=== PATIENT | male | born 1965 | race Caucasian/White ===

== ENCOUNTER 2017-08-06 13:43 | Emergency (ER) | payer OTHER ==
[2017-08-06] MEDS: GI COCKTAIL 50ML BTL(HYOSCYAMINE/MAALOX/LIDOCAINE VISCOUS)(1:3:1) PO (14:30)
[2017-08-06 14:50] LABS: BASO # 0.1 10^3/uL (0.0-0.2); BASO % 0.7 % (0.0-1.0); EOS # 0.1 10^3/uL (0.0-0.50); EOS % 1.4 % (0.0-3.0); HEMATOCRIT 39.1 % (42.0-52.0); HEMOGLOBIN 13.8 g/dl (14.0-18.0); IMMATURE GRANULOCYTE % 0.3 % (0-0); LYMPH # 1.4 10^3/uL (1.5-4.5); LYMPH % 19.6 % (24.0-44.0); MEAN CORPUSCULAR HGB CONC 35.3 g/dl (32.0-36.5); MEAN CORPUSCULAR VOLUME 87.9 fl (80.0-96.0); MONO # 0.4 10^3/uL (0.0-0.8); MONO % 5.9 % (0.0-5.0); NEUTROPHILS % 72.1 % (36.0-66.0); PLATELET COUNT, AUTOMATED 247 10^3/uL (150-450); RED BLOOD COUNT 4.45 10^6/uL (4.30-6.10); RED CELL DISTRIBUTION WIDTH 12.1 % (11.5-14.5); WHITE BLOOD COUNT 6.9 10^3/uL (4.0-10.0)
[2017-08-06 15:03] LABS: D-DIMER QUANT 384.8 ng/ml (<500)
[2017-08-06 15:18] LABS: ALBUMIN 3.9 GM/DL (3.2-5.2); ALBUMIN/GLOBULIN RATIO 1.44 (1.00-1.93); ALKALINE PHOSPHATASE 91 U/L (45-117); ALT/SGPT 20 U/L (12-78); ANION GAP 4 MEQ/L (8-16); AST/SGOT 13 U/L (7-37); BILIRUBIN,DIRECT 0.2 MG/DL (0.0-0.2); BLOOD UREA NITROGEN 21 MG/DL (7-18); CARBON DIOXIDE LEVEL 30 MEQ/L (21-32); CHLORIDE LEVEL 109 MEQ/L (98-107); CPK CREATINE PHOSPHOKINASE 101 U/L (39-308); CREATININE FOR GFR 0.84 MG/DL (0.70-1.30); GLOMERULAR FILTRATION RATE > 60.0 (>56); GLUCOSE, FASTING 90 MG/DL (70-105); LIPASE 211 U/L (73-393); SODIUM LEVEL 143 MEQ/L (136-145); TOTAL PROTEIN 6.6 GM/DL (6.4-8.2); TROPONIN I < 0.02 NG/ML (< 0.10)
[2017-08-06 15:24] LABS: MB/CK RELATIVE INDEX 0.99 (< OR =4)
[2017-08-06] MEDS ORDERED: ISOVUE-370 76% 100ML VIAL (Q9967) As Ordered (15:45)
[2017-08-06 16:17] LABS: MAGNESIUM LEVEL 2.3 MG/DL (1.8-2.4)
[2017-08-06 18:01] LABS: CPK CREATINE PHOSPHOKINASE 92 U/L (39-308); TROPONIN I < 0.02 NG/ML (< 0.10)
[2017-08-06 18:02] LABS: CK-MB VALUE MASS 1.1 NG/ML (0.0-3.6); MB/CK RELATIVE INDEX 1.19 (< OR =4)
== END 2017-08-06 18:49 | disposition home or self-care (01) ==
LOC: M ED 13:43
DX: R07.89 Other chest pain (principal); R00.1 Bradycardia, unspecified; K21.9 Gastro-esophageal reflux disease without esophagitis; Z87.891 Personal history of nicotine dependence; Z79.899 Other long term (current) drug therapy; Z88.5 Allergy status to narcotic agent
CPT/HCPCS: Q9967

== ENCOUNTER 2017-09-27 09:22 | Emergency (ER) | payer OTHER ==
[2017-09-27] MEDS: NS 1,000 ML IV (10:10)
[2017-09-27 10:18] LABS: BEDSIDE GLUCOSE 92 MG/DL (70-105)
[2017-09-27 10:22] LABS: EOS # 0.1 10^3/uL (0.0-0.50); EOS % 2.9 % (0.0-3.0); HEMATOCRIT 44.8 % (42.0-52.0); IMMATURE GRANULOCYTE % 0.3 % (0-3.0); LYMPH # 1.2 10^3/uL (1.5-4.5); LYMPH % 31.7 % (24.0-44.0); MEAN CORPUSCULAR HEMOGLOBIN 31.5 pg (27.0-33.0); MEAN CORPUSCULAR HGB CONC 35.7 g/dl (32.0-36.5); MEAN CORPUSCULAR VOLUME 88.2 fl (80.0-96.0); MONO # 0.3 10^3/uL (0.0-0.8); MONO % 8.8 % (0.0-5.0); NEUTROPHILS # 2.1 10^3/uL (1.8-7.7); NEUTROPHILS % 55.3 % (36.0-66.0); PLATELET COUNT, AUTOMATED 223 10^3/uL (150-450); RED BLOOD COUNT 5.08 10^6/uL (4.30-6.10); RED CELL DISTRIBUTION WIDTH 12.8 % (11.5-14.5); WHITE BLOOD COUNT 3.9 10^3/uL (4.0-10.0)
[2017-09-27 10:45] LABS: ALBUMIN 4.3 GM/DL (3.2-5.2); ALBUMIN/GLOBULIN RATIO 1.16 (1.00-1.93); ALKALINE PHOSPHATASE 120 U/L (45-117); ALT/SGPT 20 U/L (12-78); AMYLASE 54 U/L (25-115); ANION GAP 7 MEQ/L (8-16); AST/SGOT 12 U/L (7-37); BILIRUBIN,DIRECT 0.1 MG/DL (0.0-0.2); BILIRUBIN,TOTAL 0.9 MG/DL (0.2-1.0); BLOOD UREA NITROGEN 12 MG/DL (7-18); CALCIUM LEVEL 9.1 MG/DL (8.5-10.1); CARBON DIOXIDE LEVEL 30 MEQ/L (21-32); CHLORIDE LEVEL 107 MEQ/L (98-107); GLOMERULAR FILTRATION RATE > 60.0 (>56); GLUCOSE, FASTING 90 MG/DL (70-100); LIPASE 155 U/L (73-393); POTASSIUM SERUM 3.9 MEQ/L (3.5-5.1); SODIUM LEVEL 144 MEQ/L (136-145)
[2017-09-27 11:29] LABS: TROPONIN I < 0.02 NG/ML (< 0.10)
[2017-09-27] MEDS: GASTROGRAFIN SOLUTION 30ML PO ×2 (11:30→12:00)
[2017-09-27] MEDS ORDERED: ISOVUE-370 76% 100ML VIAL (Q9967) As Ordered (12:39)
[2017-09-27 14:22] LABS: ERYTHROCYTE SEDIMENTATION RATE 4 mm/hr (0-20)
[2017-09-30 00:07] LABS: ANCA-ATYPICAL <1:20 titer (Neg:<1:20); ANTI-SACCHAROMYCES CEREV. IgA <20.0 Units (0.0-24.9); ANTI-SACCHAROMYCES CEREV. IgG 32.5 Units (0.0-24.9); CYTOPLASMIC NEUTROP AB ANCA-C <1:20 titer (Neg:<1:20); PERINUCLEAR AB ANCA-P <1:20 titer (Neg:<1:20)
== END 2017-09-27 14:36 | disposition home or self-care (01) ==
LOC: M ED 09:22
DX: K52.9 Noninfective gastroenteritis and colitis, unspecified (principal); R94.31 Abnormal electrocardiogram [ECG] [EKG]; Z88.5 Allergy status to narcotic agent; Z98.890 Other specified postprocedural states
CPT/HCPCS: Q9963

== ENCOUNTER → 2017-12-31 | Outpatient (REF) | payer OTHER ==
[2018-01-08 00:09] LABS: CALPROTECTIN STOOL <16 ug/g (0-120); FATS NEUTRAL Normal (.); FATS TOTAL Normal (.); O+P EXAM Final report (.); PANCREATIC ELASTASE STOOL >500 (>200)
== END ==
LOC: M LAB REF 12:13
DX: R10.84 Generalized abdominal pain (principal); K21.9 Gastro-esophageal reflux disease without esophagitis; R15.2 Fecal urgency; R14.0 Abdominal distension (gaseous); R19.7 Diarrhea, unspecified

== ENCOUNTER → 2018-04-18 | Outpatient (REF) | payer OTHER ==
[2018-04-18 13:02] LABS: BASO % 0.5 % (0.0-1.0); EOS # 0.1 10^3/uL (0.0-0.50); EOS % 2.3 % (0.0-3.0); HEMATOCRIT 39.1 % (42.0-52.0); HEMOGLOBIN 13.6 g/dl (13.5-17.5); IMMATURE GRANULOCYTE % 0.3 % (0-3.0); LYMPH % 16.6 % (24.0-44.0); MEAN CORPUSCULAR HEMOGLOBIN 31.2 pg (27.0-33.0); MEAN CORPUSCULAR HGB CONC 34.8 g/dl (32.0-36.5); MEAN CORPUSCULAR VOLUME 89.7 fl (80.0-96.0); MONO # 0.5 10^3/uL (0.0-0.8); MONO % 7.6 % (0.0-5.0); NEUTROPHILS # 4.5 10^3/uL (1.8-7.7); NEUTROPHILS % 72.7 % (36.0-66.0); PLATELET COUNT, AUTOMATED 186 10^3/uL (150-450); RED BLOOD COUNT 4.36 10^6/uL (4.30-6.10); RED CELL DISTRIBUTION WIDTH 12.6 % (11.5-14.5); WHITE BLOOD COUNT 6.2 10^3/uL (4.0-10.0)
[2018-04-18 13:26] LABS: ERYTHROCYTE SEDIMENTATION RATE 6 mm/hr (0-20)
[2018-04-18 14:16] LABS: ALBUMIN 3.7 GM/DL (3.2-5.2); ALBUMIN/GLOBULIN RATIO 1.23 (1.00-1.93); ALKALINE PHOSPHATASE 100 U/L (45-117); ALT/SGPT 21 U/L (12-78); ANION GAP 10 MEQ/L (8-16); AST/SGOT 14 U/L (7-37); BILIRUBIN,TOTAL 1.2 MG/DL (0.2-1.0); BLOOD UREA NITROGEN 17 MG/DL (7-18); C REACTIVE PROTEIN QUANTITATIV < 0.30 MG/DL (0.00-0.30); CALCIUM LEVEL 8.2 MG/DL (8.5-10.1); CARBON DIOXIDE LEVEL 27 MEQ/L (21-32); CHLORIDE LEVEL 108 MEQ/L (98-107); CREATININE FOR GFR 0.81 MG/DL (0.70-1.30); GLOMERULAR FILTRATION RATE > 60.0 (>56); GLUCOSE, FASTING 84 MG/DL (70-100); POTASSIUM SERUM 4.4 MEQ/L (3.5-5.1); RHEUMATOID FACTOR QUANT < 10.0 IU/ML (<15.0); SODIUM LEVEL 145 MEQ/L (136-145); TOTAL PROTEIN 6.7 GM/DL (6.4-8.2)
[2018-04-23 00:09] LABS: ANTI DOUBLE STRAND-DNA AB <1 IU/mL (0-9); ANTINUCLEAR ANTIBODIES DIRECT Positive (Negative); HLA-B27 Negative (.); Lyme Disease IgG/IgM Antibodie <0.91 ISR (0.00-0.90); Lyme Disease IgM Ab Quantitati <0.80 index (0.00-0.79); RNP ANTIBODIES 1.7 AI (0.0-0.9); SJOGREN'S ANTI SS-A <0.2 AI (0.0-0.9); SJOGREN'S ANTI SS-B <0.2 AI (0.0-0.9); SMITH ANTIBODIES 0.2 AI (0.0-0.9)
== END ==
LOC: M LABDRAW1 09:54
DX: M77.12 Lateral epicondylitis, left elbow (principal)

== ENCOUNTER 2018-06-26 08:00 | Emergency (ER) | payer OTHER ==
[2018-06-26] MEDS: METOPROLOL TART 50 MG TAB PO (08:35)
[2018-06-26] MEDS: METOPROLOL 5 MG/5 ML VIAL IV ×7 (08:35→09:46)
[2018-06-26 08:37] LABS: BASO # 0.1 10^3/uL (0.0-0.2); BASO % 0.9 % (0.0-1.0); EOS # 0.2 10^3/uL (0.0-0.50); EOS % 4.2 % (0.0-3.0); HEMATOCRIT 45.4 % (42.0-52.0); HEMOGLOBIN 15.7 g/dl (13.5-17.5); IMMATURE GRANULOCYTE % 0.4 % (0-3.0); LYMPH # 1.7 10^3/uL (1.5-4.5); MEAN CORPUSCULAR HEMOGLOBIN 31.3 pg (27.0-33.0); MEAN CORPUSCULAR HGB CONC 34.6 g/dl (32.0-36.5); MEAN CORPUSCULAR VOLUME 90.6 fl (80.0-96.0); MONO # 0.5 10^3/uL (0.0-0.8); MONO % 9.7 % (0.0-5.0); NEUTROPHILS # 2.7 10^3/uL (1.8-7.7); NEUTROPHILS % 51.8 % (36.0-66.0); PLATELET COUNT, AUTOMATED 242 10^3/uL (150-450); RED BLOOD COUNT 5.01 10^6/uL (4.30-6.10); RED CELL DISTRIBUTION WIDTH 12.9 % (11.5-14.5); WHITE BLOOD COUNT 5.3 10^3/uL (4.0-10.0)
[2018-06-26 08:41] LABS: INR 0.91; PROTHROMBIN TIME 12.3 SECONDS (12.1-14.4)
[2018-06-26 08:42] LABS: PARTIAL THROMBOPLASTIN TIME 27.4 SECONDS (25.4-37.6)
[2018-06-26 08:47] LABS: ALBUMIN/GLOBULIN RATIO 1.11 (1.00-1.93); ALKALINE PHOSPHATASE 129 U/L (45-117); ALT/SGPT 26 U/L (12-78); ANION GAP 8 MEQ/L (8-16); AST/SGOT 20 U/L (7-37); BILIRUBIN,DIRECT 0.2 MG/DL (0.0-0.2); BILIRUBIN,TOTAL 0.8 MG/DL (0.2-1.0); BLOOD UREA NITROGEN 17 MG/DL (7-18); CALCIUM LEVEL 8.9 MG/DL (8.5-10.1); CARBON DIOXIDE LEVEL 28 MEQ/L (21-32); CHLORIDE LEVEL 106 MEQ/L (98-107); CPK CREATINE PHOSPHOKINASE 110 U/L (39-308); CREATININE FOR GFR 0.97 MG/DL (0.70-1.30); FREE T4 0.87 NG/DL (0.76-1.46); GLOMERULAR FILTRATION RATE > 60.0 (>56); GLUCOSE, FASTING 116 MG/DL (70-100); MAGNESIUM LEVEL 2.1 MG/DL (1.8-2.4); MB/CK RELATIVE INDEX 0.91 (< OR =4); POTASSIUM SERUM 3.6 MEQ/L (3.5-5.1); SODIUM LEVEL 142 MEQ/L (136-145); TOTAL PROTEIN 7.6 GM/DL (6.4-8.2); TROPONIN I < 0.02 NG/ML (< 0.10)
[2018-06-26] MEDS: AMIODARONE HCL 150 MG in APPROPRIATE DILUENT 1 EA IV ×2 (10:08→11:51)
[2018-06-26] MEDS: METOPROLOL TART 25 MG TABLET PO (13:23)
[2018-06-26 14:13] LABS: CK-MB VALUE MASS < 1.0 NG/ML (<3.6); CPK CREATINE PHOSPHOKINASE 97 U/L (39-308); MB/CK RELATIVE INDEX 1.03 (< OR =4); TROPONIN I < 0.02 NG/ML (< 0.10)
== END 2018-06-26 15:56 | disposition home or self-care (01) ==
LOC: M ED 08:00
DX: I48.91 Unspecified atrial fibrillation (principal); F10.10 Alcohol abuse, uncomplicated
CPT/HCPCS: 71045

== ENCOUNTER → 2018-07-04 | Outpatient (REF) | payer OTHER ==
[2018-07-04 17:33] LABS: BASO # 0.1 10^3/uL (0.0-0.2); BASO % 0.8 % (0.0-1.0); EOS # 0.2 10^3/uL (0.0-0.50); HEMATOCRIT 41.1 % (42.0-52.0); HEMOGLOBIN 14.1 g/dl (13.5-17.5); IMMATURE GRANULOCYTE % 0.2 % (0-3.0); LYMPH # 1.8 10^3/uL (1.5-4.5); LYMPH % 27.8 % (24.0-44.0); MEAN CORPUSCULAR HEMOGLOBIN 31.3 pg (27.0-33.0); MEAN CORPUSCULAR HGB CONC 34.3 g/dl (32.0-36.5); MEAN CORPUSCULAR VOLUME 91.1 fl (80.0-96.0); MONO # 0.5 10^3/uL (0.0-0.8); MONO % 7.3 % (0.0-5.0); NEUTROPHILS # 3.9 10^3/uL (1.8-7.7); NEUTROPHILS % 60.9 % (36.0-66.0); PLATELET COUNT, AUTOMATED 256 10^3/uL (150-450); RED BLOOD COUNT 4.51 10^6/uL (4.30-6.10); RED CELL DISTRIBUTION WIDTH 12.7 % (11.5-14.5); WHITE BLOOD COUNT 6.3 10^3/uL (4.0-10.0)
[2018-07-04 17:47] LABS: ALBUMIN 3.9 GM/DL (3.2-5.2); ALBUMIN/GLOBULIN RATIO 1.34 (1.00-1.93); ALKALINE PHOSPHATASE 103 U/L (45-117); ALT/SGPT 18 U/L (12-78); ANION GAP 7 MEQ/L (8-16); AST/SGOT 14 U/L (7-37); BILIRUBIN,TOTAL 0.6 MG/DL (0.2-1.0); BLOOD UREA NITROGEN 19 MG/DL (7-18); CALCIUM LEVEL 8.4 MG/DL (8.5-10.1); CARBON DIOXIDE LEVEL 29 MEQ/L (21-32); CHLORIDE LEVEL 108 MEQ/L (98-107); CREATININE FOR GFR 0.93 MG/DL (0.70-1.30); GLOMERULAR FILTRATION RATE > 60.0 (>56); GLUCOSE, FASTING 87 MG/DL (70-100); POTASSIUM SERUM 3.9 MEQ/L (3.5-5.1); SODIUM LEVEL 144 MEQ/L (136-145); TOTAL PROTEIN 6.8 GM/DL (6.4-8.2)
[2018-07-07 00:08] LABS: ANA (HEP2) Negative (.)
== END ==
LOC: M LABDRAW1 17:03
DX: R76.9 Abnormal immunological finding in serum, unspecified (principal); R00.2 Palpitations; R53.83 Other fatigue; R50.9 Fever, unspecified

== ENCOUNTER → 2018-07-13 | Outpatient (REF) | payer OTHER ==
[2018-07-13 20:13] LABS: ANION GAP 7 MEQ/L (8-16); BLOOD UREA NITROGEN 15 MG/DL (7-18); CALCIUM LEVEL 8.6 MG/DL (8.5-10.1); CARBON DIOXIDE LEVEL 29 MEQ/L (21-32); CHLORIDE LEVEL 107 MEQ/L (98-107); CREATININE FOR GFR 0.98 MG/DL (0.70-1.30); GLOMERULAR FILTRATION RATE > 60.0 (>56); GLUCOSE, FASTING 111 MG/DL (70-100); POTASSIUM SERUM 3.7 MEQ/L (3.5-5.1); SODIUM LEVEL 143 MEQ/L (136-145)
== END ==
LOC: M LABDRWAD 19:25
DX: R07.9 Chest pain, unspecified (principal); R06.02 Shortness of breath; R00.2 Palpitations; R03.0 Elevated blood-pressure reading, without diagnosis of hypertension
CPT/HCPCS: 80048

== ENCOUNTER 2018-07-18 11:18 | Emergency (ER) | payer OTHER ==
[2018-07-18 11:54] LABS: BASO % 0.7 % (0.0-1.0); EOS # 0.2 10^3/uL (0.0-0.50); EOS % 2.7 % (0.0-3.0); HEMATOCRIT 44.7 % (42.0-52.0); HEMOGLOBIN 15.5 g/dl (13.5-17.5); IMMATURE GRANULOCYTE % 0.2 % (0-3.0); LYMPH # 1.2 10^3/uL (1.5-4.5); LYMPH % 21.6 % (24.0-44.0); MEAN CORPUSCULAR HEMOGLOBIN 30.9 pg (27.0-33.0); MEAN CORPUSCULAR HGB CONC 34.7 g/dl (32.0-36.5); MONO # 0.4 10^3/uL (0.0-0.8); MONO % 7.7 % (0.0-5.0); NEUTROPHILS # 3.7 10^3/uL (1.8-7.7); NEUTROPHILS % 67.1 % (36.0-66.0); PLATELET COUNT, AUTOMATED 223 10^3/uL (150-450); RED BLOOD COUNT 5.02 10^6/uL (4.30-6.10); RED CELL DISTRIBUTION WIDTH 12.1 % (11.5-14.5); WHITE BLOOD COUNT 5.6 10^3/uL (4.0-10.0)
[2018-07-18 12:04] LABS: INR 1.04; PARTIAL THROMBOPLASTIN TIME 27.6 SECONDS (25.4-37.6); PROTHROMBIN TIME 13.8 SECONDS (12.1-14.4)
[2018-07-18 12:27] LABS: ALBUMIN/GLOBULIN RATIO 1.08 (1.00-1.93); ALKALINE PHOSPHATASE 113 U/L (45-117); ALT/SGPT 18 U/L (12-78); ANION GAP 7 MEQ/L (8-16); AST/SGOT 13 U/L (7-37); BILIRUBIN,DIRECT 0.2 MG/DL (0.0-0.2); BILIRUBIN,TOTAL 1.2 MG/DL (0.2-1.0); BLOOD UREA NITROGEN 14 MG/DL (7-18); CALCIUM LEVEL 8.3 MG/DL (8.5-10.1); CARBON DIOXIDE LEVEL 30 MEQ/L (21-32); CHLORIDE LEVEL 107 MEQ/L (98-107); CK-MB VALUE MASS < 1.0 NG/ML (<3.6); CPK CREATINE PHOSPHOKINASE 70 U/L (39-308); CREATININE FOR GFR 1.07 MG/DL (0.70-1.30); GLOMERULAR FILTRATION RATE > 60.0 (>56); GLUCOSE, FASTING 81 MG/DL (70-100); LIPASE 146 U/L (73-393); MB/CK RELATIVE INDEX 1.43 (< OR =4); POTASSIUM SERUM 3.8 MEQ/L (3.5-5.1); SODIUM LEVEL 144 MEQ/L (136-145); TOTAL PROTEIN 7.7 GM/DL (6.4-8.2); TROPONIN I < 0.02 NG/ML (< 0.10)
[2018-07-18] MEDS ORDERED: ISOVUE-370 76% 100ML VIAL (Q9967) As Ordered (13:24)
[2018-07-18 15:00] LABS: CK-MB VALUE MASS < 1.0 NG/ML (<3.6); CPK CREATINE PHOSPHOKINASE 67 U/L (39-308); MB/CK RELATIVE INDEX 1.49 (< OR =4); TROPONIN I < 0.02 NG/ML (< 0.10)
== END 2018-07-18 18:45 | disposition home or self-care (01) ==
LOC: M ED 11:18
DX: I82.612 Acute embolism and thrombosis of superficial veins of left upper extremity (principal); I48.0 Paroxysmal atrial fibrillation; Z79.899 Other long term (current) drug therapy; Z88.5 Allergy status to narcotic agent
CPT/HCPCS: Q9967

== ENCOUNTER → 2018-07-28 | Outpatient (CLI) | payer OTHER ==
[~2018-07-28] MED LIST: ASPI325T PO; DILT30TA; FAMO40TA3 PO; FLUTISP; METO1TAB32 PO; OMEP20CA3; OMEP40CA2 PO; PENT500C PO; RANI300T
[2018-07-28 15:25] LABS: HEMATOCRIT 39.8 % (42.0-52.0); HEMOGLOBIN 13.9 g/dl (13.5-17.5); MEAN CORPUSCULAR HGB CONC 34.9 g/dl (32.0-36.5); MEAN CORPUSCULAR VOLUME 88.8 fl (80.0-96.0); PLATELET COUNT, AUTOMATED 245 10^3/uL (150-450); RED BLOOD COUNT 4.48 10^6/uL (4.30-6.10); WHITE BLOOD COUNT 7.3 10^3/uL (4.0-10.0)
[2018-07-28 15:50] LABS: BLOOD UREA NITROGEN 14 MG/DL (7-18); CALCIUM LEVEL 8.2 MG/DL (8.5-10.1); CARBON DIOXIDE LEVEL 28 MEQ/L (21-32); CHLORIDE LEVEL 108 MEQ/L (98-107); CREATININE FOR GFR 0.93 MG/DL (0.70-1.30); GLOMERULAR FILTRATION RATE > 60.0 (>56); GLUCOSE, FASTING 102 MG/DL (70-100); POTASSIUM SERUM 3.8 MEQ/L (3.5-5.1); SODIUM LEVEL 143 MEQ/L (136-145)
== END ==
LOC: M LAB 14:45
PROVIDERS: ATTEND Internal Medicine Cardiovascular Disease
DX: R06.02 Shortness of breath (principal); I48.0 Paroxysmal atrial fibrillation; K21.9 Gastro-esophageal reflux disease without esophagitis

== ENCOUNTER → 2018-08-04 | Outpatient (REF) | payer OTHER ==
[2018-08-04 14:05] LABS: C REACTIVE PROTEIN QUANTITATIV 1.2 MG/DL (0.00-0.30); IMMUNOGLOBULIN M 99.1 MG/DL (40-230)
[2018-08-06 00:45] LABS: EBV VIRAL CAPSID AG IgM <36.0 U/mL (0.0-35.9); Lyme Disease IgG/IgM Antibodie <0.91 ISR (0.00-0.90); Lyme Disease IgM Ab Quantitati <0.80 index (0.00-0.79)
== END ==
LOC: M SFHCPLAZ 11:01
PROVIDERS: ATTEND Internal Medicine Infectious Disease
DX: M25.512 Pain in left shoulder (principal); R53.82 Chronic fatigue, unspecified

== ENCOUNTER 2018-09-06 03:01 | Emergency (ER) | payer OTHER ==
[~2018-09-06] VITALS: Ht 175.3 cm; Wt 75.0 kg
[2018-09-06] MEDS ORDERED: HYOS0.1248 (03:10)
[2018-09-06] MEDS ORDERED: MELO15TA28 (03:12)
[2018-09-06] MEDS ORDERED: AMIODARONE HCL 150 MG in APPROPRIATE DILUENT 1 EA IV STA (03:36)
[2018-09-06] MEDS ORDERED: METOPROLOL 5 MG/5 ML VIAL IV STA (03:36)
[2018-09-06 03:56] LABS: BASO # 0.1 10^3/uL (0.0-0.2); BASO % 0.9 % (0.0-1.0); EOS # 0.2 10^3/uL (0.0-0.50); EOS % 3.1 % (0.0-3.0); HEMATOCRIT 41.3 % (42.0-52.0); HEMOGLOBIN 14.4 g/dl (13.5-17.5); LYMPH # 2.1 10^3/uL (1.5-4.5); LYMPH % 36.3 % (24.0-44.0); MEAN CORPUSCULAR HEMOGLOBIN 30.4 pg (27.0-33.0); MEAN CORPUSCULAR HGB CONC 34.9 g/dl (32.0-36.5); MEAN CORPUSCULAR VOLUME 87.1 fl (80.0-96.0); MONO # 0.5 10^3/uL (0.0-0.8); NEUTROPHILS % 50.4 % (36.0-66.0); PLATELET COUNT, AUTOMATED 209 10^3/uL (150-450); RED BLOOD COUNT 4.74 10^6/uL (4.30-6.10); WHITE BLOOD COUNT 5.9 10^3/uL (4.0-10.0)
[2018-09-06 04:09] LABS: BLOOD UREA NITROGEN 17 MG/DL (7-18); CALCIUM LEVEL 8.4 MG/DL (8.5-10.1); CARBON DIOXIDE LEVEL 26 MEQ/L (21-32); CHLORIDE LEVEL 109 MEQ/L (98-107); CPK CREATINE PHOSPHOKINASE 146 U/L (39-308); CREATININE FOR GFR 0.88 MG/DL (0.70-1.30); GLOMERULAR FILTRATION RATE > 60.0 (>56); GLUCOSE, FASTING 100 MG/DL (70-100); MB/CK RELATIVE INDEX 0.82 (< OR =4); POTASSIUM SERUM 3.5 MEQ/L (3.5-5.1); SODIUM LEVEL 145 MEQ/L (136-145); TROPONIN I < 0.02 NG/ML (< 0.10)
[2018-09-06 05:13] VITALS: BP 132/76
[2018-09-06] MEDS ORDERED: AMIODARONE 200 MG TAB (PACERONE) PO ONE (06:30)
[2018-09-06] MEDS ORDERED: METO25TA4 PO (08:36)
[2018-09-06] MEDS ORDERED: PROT1TAB2 PO (08:36)
[2018-09-06 08:43] VITALS: BP 117/77
--- NOTE | 2018-09-06 09:16 | ED PDOC ---
Post-Departure Follow-Up Patient seen by Dr. Saleem. A discharge plan was arranged between he and the [facility], to include starting a PPI for chronic reflux and to use metoprolol tartrate 25mg 1-2 two times daily for prolonged palpitations. Follow up is to be with his PCP and Minor Butler M.D. Sep 06, 2018 09:16
--- NOTE | 2018-09-06 19:53 | ER ---
DATE OF CONSULTATION: 09/06/2018 INDICATION: Atrial fibrillation, chest pain. REFERRING PHYSICIAN: Emergency room physician, Dr. Meng. I was asked to see Mr. Hillman for atrial fibrillation and chest discomfort. He is a 53-year-old man who has a history of paroxysmal atrial fibrillation. He was seen at [facility] on June 26 for atrial fibrillation with rapid ventricular response (RVR) and eventually converted to sinus rhythm after receiving several doses of amiodarone and metoprolol. He subsequently was followed by Dr. Boyd and underwent further testing that included stress echocardiogram, Holter monitor, and eventually cardiac catheterization. All these tests were essentially unrevealing, specifically cardiac catheterization did not reveal any coronary artery disease, and his Holter monitor revealed no evidence for recurrence of atrial fibrillation. But he continues to feel unwell. He reports that he has almost constant or daily episodes of discomfort in his chest that he describes as reflux or the brief sensation of nausea and eructations that is associated with sensation of skipped heartbeats. He also has very frequent episodes of left-sided chest discomfort that is the most severe over his left inferior ribs, but seems to radiate to the whole left pectoralis muscle. The left side of his chest is very sensitive to touch. The episodes of chest discomfort occur daily and will last for a few minutes to several hours, typically at rest. Activity seems to be generally not associated with any discomfort. Because of the symptoms above, he was seen by numerous physicians. So far no obvious etiology was found. This morning he came to emergency room after he was woken up around 3:00 a.m. with his typical gastrointestinal (GI) symptoms with a sensation of reflux-type of symptoms with palpitations. They were this time sustained in nature. He was found to be in atrial fibrillation with rapid ventricular response. He received a single dose of IV amiodarone 150 mg that led to slowing of his heart rate that was just temporary, then he received 120 mg of extended release Cardizem. His heart rate was better, and there was intention to discharge the patient home but unfortunately the patient did not feel good and refused to leave the emergency room until the etiology of his symptoms is elucidated. When I was contacted from the emergency room, I recommended that he gets additional 150 mg of IV amiodarone and by the time I saw him in emergency room, he was in sinus rhythm. But he still has discomfort on the left side of his chest that did not seem to be affected by his transition to sinus rhythm but with resolution of atrial fibrillation, his prior sensation of indigestion type of symptoms resolved virtually instantaneously The patient is very frustrated by his symptoms. He tells me that until last year he was a very highly functioning man who had no medical problems whatsoever but since fall, he is not able to perform any of his typical work-related activities. He lives in constant fear and stress of chest discomfort, palpitations and indigestion type of symptoms. He says that the medical system is failing him because we cannot find the etiology and ultimately cure of his symptoms. PAST MEDICAL HISTORY: 1. Gastroesophageal reflux disease (GERD). 2. History of sinusitis. 3. Paroxysmal atrial fibrillation as above. 4. Negative coronary angiography in August 2018. SURGICAL HISTORY: Negative. SOCIAL HISTORY: The patient is . He lives with his . 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 There is no history of smoking. He used to drink a significant amount of alcohol but quit completely after his presentation in June 2018. He used to run avidly but has been abstaining from this activity since his chest pain and palpitations. FAMILY HISTORY: Negative for similar problems or coronary artery disease in an early age. REVIEW OF SYSTEMS: He denies any recent fever, chills. He has no vomiting. He has no significant weight change. He says that he altered his diet significantly in the way of eliminating alcohol. He eats very few processed foods and refined carbohydrates, and he also has been eliminating some of the gluten related products. No history of bleeding. No history of syncope, near syncope. No peripheral edema. No rashes. The rest of the review of systems is negative. ALLERGIES: To CODEINE and PREDNISONE. OUTPATIENT MEDICATIONS: Positive for the Zantac 150 mg daily, meloxicam 15 mg daily. PHYSICAL EXAMINATION: Mr. Hillman is a middle-aged man who appears in physically good shape, alert and oriented and appropriate, somewhat agitated at times but not confrontational. Blood pressure 117/77, heart rate currently in high 60s, low 70s. He is afebrile. Saturation 98% on room air. His jugular venous pressure (JVP) is not elevated. Lungs are clear to auscultation with good air movement. Heart: Exam reveals regular rhythm without gallop, rub or murmur. There is tenderness over the left inferior ribs on palpation. There is no significant abdominal pain or guarding or tenderness. I do not appreciate hepatosplenomegaly. Extremities are free of edema. There are good peripheral pulses. Neurologically he is intact. LABORATORY: CBC is normal. Basic metabolic panel is normal. Cardiac enzymes are normal. ECG reveals atrial fibrillation with rapid ventricular response, but no ST segment shift. No imaging was performed today. He had a CT angiography of the chest performed on July 18, 2018 when he presented with chest discomfort and it was negative for pulmonary emboli. ASSESSMENT/PLAN: Mr. Hillman is a 53-year-old man who presents with second episode of sustained atrial fibrillation over the course of several months that is ultimately terminated by administration of amiodarone. Both of these episodes occurred at night, that raise some suspicion that he might have underlying sleep apnea, but his claims that he never snores and she never noticed any pauses in his breath. He has eliminated alcohol since his initial presentation a little more than 2 months ago. Consequently, I believe we can conclude that he has lone atrial fibrillation. Interestingly, the episode of palpitations seems to be associated with GI symptoms. He is convinced that he very likely as hiatal hernia that is the cause of his problems. As far as I could find in his records, there is no evidence for this, and he had CT of the chest. But he had previously proven reflux, and I suggested that he starts taking a full dose of proton pump inhibitor (PPI) instead of his current Zantac. I also suggested that he contact his GI physician, Dr. Rondon, in [place] to consider potentially additional evaluation. He does not have any additional risk factors for stroke and consequently I do not believe that he needs anticoagulation. Will give him metoprolol 25mg po for as needed use. As far as the chest discomfort is concerned, I understand that he is frustrated by our inability to correct this problem. The description of the discomfort sounds musculoskeletal in nature, potentially GI etiology as well. Ischemic etiology in my opinion was ruled out not only by normal coronary angiography, but also by the description of the pain that is not consistent with angina. It is also not consistent with pericardial pain. He took a trial of 2 weeks of nonsteroidal anti-inflammatory drugs (NSAIDS) that did not make any difference. I have to admit that I am not sure what else to recommend. I would hope that with ongoing use of PPIs, the discomfort will eventually subside. BARB
--- NOTE | 2018-09-07 08:41 | ECGEPIP ---
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
== END 2018-09-06 09:16 | disposition home or self-care (01) ==
LOC: M ED 03:01
DX: I48.91 Unspecified atrial fibrillation (principal); K21.9 Gastro-esophageal reflux disease without esophagitis; F10.20 Alcohol dependence, uncomplicated; Z79.899 Other long term (current) drug therapy; Z88.5 Allergy status to narcotic agent; Z88.8 Allergy status to other drugs, medicaments and biological substances; Z87.891 Personal history of nicotine dependence

== ENCOUNTER → 2018-09-14 | Outpatient (REF) | payer OTHER ==
[~2018-09-14] MED LIST changes: +HYOS0.1248; +MELO15TA28; +METO25TA4 PO; +PROT1TAB2 PO
[2018-09-14 18:54] LABS: C REACTIVE PROTEIN QUANTITATIV < 0.30 MG/DL (0.00-0.30); RHEUMATOID FACTOR QUANT < 10.0 IU/ML (<15.0)
[2018-09-14 19:01] LABS: VITAMIN B12 LEVEL 676 PG/ML
[2018-09-14 19:02] LABS: FOLATE > 24.0 NG/ML
== END ==
LOC: M LABNEURO 13:56
PROVIDERS: ATTEND Psychiatry & Neurology Neurology
DX: R51 Headache (principal)

== ENCOUNTER → 2018-10-26 | Outpatient (REF) | payer OTHER ==
[2018-10-28 00:08] LABS: ANA (HEP2) Negative (.); ANTI DOUBLE STRAND-DNA AB <1 IU/mL (0-9); ANTINUCLEAR ANTIBODIES DIRECT Positive (Negative); CARDIOLIPIN IGA ANTIBODY <9 APL U/mL (0-11); CARDIOLIPIN IGG ANTIBODY <9 GPL U/mL (0-14); CARDIOLIPIN IGM ANTIBODY <9 MPL U/mL (0-12); RNP ANTIBODIES 1.6 AI (0.0-0.9); SJOGREN'S ANTI SS-A <0.2 AI (0.0-0.9); SJOGREN'S ANTI SS-B <0.2 AI (0.0-0.9); SMITH ANTIBODIES 0.2 AI (0.0-0.9)
== END ==
LOC: M LABDRAW1 12:07
PROVIDERS: ATTEND Psychiatry & Neurology Neurology
DX: R51 Headache (principal)

== ENCOUNTER → 2019-01-13 | Outpatient (REF) | payer OTHER ==
[~2019-01-13] MED LIST changes: +ASPI-1 PO; -ASPI325T PO
[2019-01-17 00:06] LABS: ANA (HEP2) Negative (.); Lyme Disease IgG/IgM Antibodie <0.91 ISR (0.00-0.90); Lyme Disease IgM Ab Quantitati <0.80 index (0.00-0.79)
== END ==
LOC: M LABDRAW1 12:47
DX: R26.89 Other abnormalities of gait and mobility (principal)

== ENCOUNTER → 2019-06-06 | Outpatient (REF) | payer OTHER ==
[~2019-06-06] MED LIST changes: -OMEP20CA3; +OMEP20CA4; -OMEP40CA2 PO; +OMEP40CA97 PO
== END ==
LOC: M LABNEURO 13:12
PROVIDERS: ATTEND Psychiatry & Neurology Neurology
DX: R51 Headache (principal)

== ENCOUNTER → 2019-09-16 | Outpatient (CLI) | payer OTHER ==
[~2019-09-16] MED LIST changes: +OMEP1CAP73; -OMEP20CA4
[2019-09-16 17:33] LABS: BASO % 0.4 % (0.0-1.0); EOS # 0.1 10^3/uL (0.0-0.5); EOS % 1.8 % (0.0-3.0); HEMOGLOBIN 14.8 g/dl (13.5-17.5); LYMPH # 1.7 10^3/uL (1.5-5.0); LYMPH % 23.4 % (24.0-44.0); MEAN CORPUSCULAR HEMOGLOBIN 30.1 pg (27.0-33.0); MEAN CORPUSCULAR HGB CONC 33.6 g/dl (32.0-36.5); MEAN CORPUSCULAR VOLUME 89.6 fl (80.0-96.0); MONO # 0.7 10^3/uL (0.0-0.8); MONO % 10.1 % (0.0-5.0); NEUTROPHILS # 4.5 10^3/uL (1.5-8.5); PLATELET COUNT, AUTOMATED 220 10^3/uL (150-450); RED BLOOD COUNT 4.91 10^6/uL (4.30-6.10); WHITE BLOOD COUNT 7.1 10^3/uL (4.0-10.0)
== END ==
LOC: M LABDRWAD 16:21
PROVIDERS: ATTEND Physician Assistant
DX: H81.393 Other peripheral vertigo, bilateral (principal); R11.0 Nausea

== ENCOUNTER → 2020-05-15 | Outpatient (CLI) | payer OTHER ==
[2020-05-15 13:18] LABS: BASO % 0.7 % (0.0-1.0); EOS # 0.2 10^3/uL (0.0-0.5); EOS % 2.6 % (0.0-3.0); HEMATOCRIT 42.1 % (42.0-52.0); HEMOGLOBIN 14.2 g/dl (13.5-17.5); LYMPH # 1.5 10^3/uL (1.5-5.0); LYMPH % 26.6 % (24.0-44.0); MEAN CORPUSCULAR HEMOGLOBIN 30.4 pg (27.0-33.0); MEAN CORPUSCULAR HGB CONC 33.7 g/dl (32.0-36.5); MEAN CORPUSCULAR VOLUME 90.1 fl (80.0-96.0); MONO # 0.5 10^3/uL (0.0-0.8); MONO % 9.3 % (0.0-5.0); NEUTROPHILS # 3.5 10^3/uL (1.5-8.5); NEUTROPHILS % 60.1 % (36.0-66.0); PLATELET COUNT, AUTOMATED 239 10^3/uL (150-450); RED BLOOD COUNT 4.67 10^6/uL (4.30-6.10); WHITE BLOOD COUNT 5.8 10^3/uL (4.0-10.0)
[2020-05-15 13:32] LABS: C REACTIVE PROTEIN QUANTITATIV < 0.30 MG/DL (0.00-0.30); RHEUMATOID FACTOR QUANT < 10.0 IU/ML (<15.0)
[2020-05-15 13:45] LABS: ERYTHROCYTE SEDIMENTATION RATE 5 mm/hr (0-20)
[2020-05-20 14:08] LABS: ANTI DOUBLE STRAND-DNA AB <1 IU/mL (0-9); ANTINUCLEAR ANTIBODIES DIRECT Positive (Negative); HLA-B27 Negative (.); RNP ANTIBODIES 1.9 AI (0.0-0.9); SJOGREN'S ANTI SS-A <0.2 AI (0.0-0.9); SJOGREN'S ANTI SS-B <0.2 AI (0.0-0.9); SMITH ANTIBODIES <0.2 AI (0.0-0.9)
== END ==
LOC: M WUC 10:31
PROVIDERS: ATTEND Orthopaedic Surgery
DX: M50.30 Other cervical disc degeneration, unspecified cervical region (principal)

== ENCOUNTER → 2020-06-13 | Outpatient (CLI) | payer OTHER ==
[~2020-06-13] MED LIST changes: +METHACHOLINE KIT (J7674) INH ONE
--- NOTE | 2020-06-13 11:53 | PFTRPT ---
Height: 69.00 Inches Weight: 168.00 Lbs BSA: 1.92 Diagnosis: R06.00 DATE: 06/13/2020 ORDERED BY: ROOPA Gray QUALITY: Study of excellent technical quality. PROCEDURE: Under protocol, methacholine was administered. At a dose of 2.5 mg or 13.875 CDUs, a 26% decline in the FEV1 was noted. PC of 0.68 is significant. Flow rates did return to baseline post bronchodilator administration. IMPRESSION: Positive methacholine challenge study. MTDD
== END ==
LOC: M CARPUL 06-11 09:35
PROVIDERS: ATTEND Physician Assistant
DX: R06.00 Dyspnea, unspecified (principal)
CPT/HCPCS: 94070; J7674

== ENCOUNTER → 2020-08-14 | Outpatient (CLI) | payer OTHER ==
[~2020-08-14] MED LIST changes: -METHACHOLINE KIT (J7674) INH ONE
[2020-08-14 16:07] LABS: EOS # 0.2 10^3/uL (0.0-0.5)
== END ==
LOC: M WUC 12:56
PROVIDERS: ATTEND Internal Medicine Pulmonary Disease
DX: J45.40 Moderate persistent asthma, uncomplicated (principal)

== ENCOUNTER → 2020-08-20 | Outpatient (CLI) | payer OTHER | LOC: M WUC 10:22 | PROVIDERS: ATTEND Internal Medicine Gastroenterology | DX: K58.8 Other irritable bowel syndrome (principal) ==

== ENCOUNTER → 2020-12-13 | Outpatient (CLI) | payer OTHER ==
[2020-12-13 16:16] LABS: THYROID STIMULATING HORMONE 1.89 uIU/ML (0.358-3.740)
[2020-12-16 16:22] LABS: Lyme Disease IgG/IgM Antibodie <0.91 ISR (0.00-0.90); Lyme Disease IgM Ab Quantitati <0.80 index (0.00-0.79)
== END ==
LOC: M WUC 13:19
PROVIDERS: ATTEND Psychiatry & Neurology Neurology
DX: M79.10 Myalgia, unspecified site (principal)

== ENCOUNTER → 2021-02-27 | Outpatient (CLI) | payer OTHER ==
[~2021-02-27] MED LIST changes: +OMEP40CA4 PO; -OMEP40CA97 PO
--- NOTE | 2021-03-01 10:41 | REPVR ---
PROCEDURE INFORMATION: Exam: MR Cervical Spine Without Contrast Exam date and time: 02/27/2021 2:21 PM Age: 55 years old Clinical indication: Neck pain. TECHNIQUE: Imaging protocol: Multiplanar magnetic resonance images of the cervical spine without contrast. COMPARISON: CT Head without contrast 09/27/2017 12:42 PM FINDINGS: Vertebrae: Unremarkable. Spinal cord: Normal signal. No cord compression. C2-C3: There is bilateral uncovertebral joint arthropathy, worse on the left. C3-C4: There is disc desiccation. There is a moderate disc/osteophyte complex that flattens the ventral thecal sac. There is moderate bilateral uncovertebral joint arthropathy. There is mild bilateral neuroforaminal narrowing. C4-C5: There is disc desiccation. There is mild ventral ridging which flattens the ventral thecal sac. C5-C6: There is disc space narrowing and desiccation. There are moderate degenerative end plate changes at this level. There is a moderate disc/osteophyte complex that flattens the ventral thecal sac. There is effacement of the ventral subarachnoid space and indentation of the ventral cervical cord. There is moderate bilateral uncovertebral joint arthropathy. C6-C7: There is degenerative disc disease including disc space narrowing and dessication. There is a moderate disc/osteophyte complex, partial toward the left, that flattens the ventral thecal sac and compromises the left neural foramen. There is a small left paracentral disc protrusion. There is mild/moderate left-sided neuroforaminal narrowing. There is mild spinal canal stenosis. C7-T1: No significant disc disease. No significant spinal stenosis. Soft tissues: Unremarkable. IMPRESSION: Multilevel degenerative changes as described above. Electronically signed by: Arsalan Quintanilla On 03/01/2021 10:41:11 AM
== END ==
LOC: M PLAIMG 13:14
PROVIDERS: ATTEND Family Medicine
DX: M50.20 Other cervical disc displacement, unspecified cervical region (principal); M48.02 Spinal stenosis, cervical region

== ENCOUNTER → 2021-05-29 | Outpatient (CLI) | payer OTHER ==
--- NOTE | 2021-05-29 13:21 | REP ---
INDICATION: HEARTBURN, OTHER IBS. COMPARISON: None. TECHNIQUE: Real-time sonographic evaluation of right upper quadrant performed. FINDINGS: The gallbladder demonstrates no evidence of intraluminal sludge or calculi, wall thickening or pericholecystic fluid. There is no intrahepatic or extrahepatic biliary dilatation, common bile duct measures 5 mm in maximum diameter. The liver demonstrates homogeneous echotexture with no gross mass. Pancreas is not well seen due to overlying bowel gas. The right kidney demonstrates no hydronephrosis, with a normal size of 10.7 cm in length. There is a possible 4 mm calcification in the upper pole cortex.No free fluid is seen. IMPRESSION: Negative right upper quadrant ultrasound. <Electronically signed by Panfilo Vergara > 05/29/21 [id number]
== END ==
LOC: M RAD 07:20
PROVIDERS: ATTEND Internal Medicine Gastroenterology
DX: R12 Heartburn (principal); K58.8 Other irritable bowel syndrome

== ENCOUNTER → 2021-07-07 | Outpatient (CLI) | payer OTHER ==
[~2021-07-07] MED LIST changes: +FAMO20TA5 PO
== END ==
LOC: M LABSMTC 10:48
PROVIDERS: ATTEND Anesthesiology
DX: Z01.812 Encounter for preprocedural laboratory examination (principal); Z20.822 Contact with and (suspected) exposure to COVID-19

== ENCOUNTER 2021-07-11 10:21 | Day surgery (SDC) | payer OTHER ==
[~2021-07-11] VITALS: Ht 175.3 cm; Wt 78.8 kg
[~2021-07-11 10:21] MED LIST changes: +LIDOCAINE 2% 100MG/5ML SDV (FOR ANES.) As Ordered ONE; +NS 1,000 ML IV ONE; +propofoL 200 MG/20 ML VIAL As Ordered ONE
--- OUTSIDE RECORDS SUMMARY | 2021-07-11 10:28 | CCD | Continuity of Care Document ---
Author Author Des Wallace Organization Unknown Address [address], [place] [address] Phone [phone] Care Team Providers Care Quarry Plug And Feather Driller Name Role Phone Cesar Hubbard M.D. AUTM [phone] Problems Active Problems Provider Date Allergic rhinitis due to house dust mite aEmon Verduzco M.D. Onset: 07/07/2018 Note: 4++ reaction to dust mites on scra tch test completed in 2020. Allergic rhinitis caused by mold Eamon Verduzco M.D. O nset: 07/07/2018 Note: 4+ reaction to Phoma mold spores w ith a 3+ reaction to Alternaria mold spores on scratch test completed in 2020. Allergic rhinitis due to animal dander O nset: 07/07/2018 Note: 4++ reaction to cat dander on scra tch test with a 3+ reaction to dog dander on intradermal test completed in 2020. Allergic rhinitis due to pollen Onset: 1 09/07/2017 Note: 4++ reaction to various tree, gras s and ragweed pollens with a 3+ reaction to various weed pollen on scratch test completed in 2020. Malaise and fatigue Onset: 07/07/2018 Multiple somatic complaints Onset: 07/07 Dyspnea Onset: 07/07/2018 Gastroesophageal reflux disease Eamon Verduzco M.D. On set: 2020 Social History Type Date Description Comments Sex Unknown Tobacco Use Start: 08/02/92 End: 08/02/02 Patient is a forme r smoker 2 Cigarettes Per Day Smoking Status Reviewed: 05/15/21 Patient is a former smoker 2 Cigarettes Per Day Allergies and adverse reactions Active Allergies Criticality Reaction | Severity Comments Date Prednisone Unable to assess criticality 03/25/2019 Codeine Sulfate Unable to assess criticality 03/25/2019 Medications Active Medications SIG Qnty Indications Ordering Provide r Date Pantoprazole Sodium 40mg Tablets D R Take One Tablet By Mouth Twice A Day Unknown History Medications Flonase Sensimist 27 .5mcg/[place] Suspension 2 sprays each nostril every night 27.300ml J30.1 Eamon Verduzco M.D. 02/20/2021 - 05/14/2021 Medications Administered in Office Medication SIG Qnty Indications Ordering Provider Date Allergy Injection 2 Or More Injection Eamon Verduzco M.D. 07/09/2021 Allergy Injection 2 Or More Injection Eamon Verduzco M.D. 07/02/2021 Allergy Injection 2 Or More Injection Eamon Verduzco M.D. 06/14/2021 Allergy Injection 2 Or More Injection Eamon Verduzco M.D. 06/04/2021 Allergy Injection 2 Or More Injection Eamon Verduzco M.D. 05/28/2021 Allergy Injection 2 Or More Injection Eamon Verduzco M.D. 05/22/2021 Allergy Injection 2 Or More Injection Eamon Verduzco M.D. 05/15/2021 Allergy Injection 2 Or More Injection Eamon Verduzco M.D. 05/07/2021 Allergy Injection 2 Or More Injection Eamon Verduzco M.D. 04/30/2021 Allergy Injection 2 Or More Injection Eamon Verduzco M.D. 04/23/2021 Allergy Injection 2 Or More Injection Eamon Verduzco M.D. 04/16/2021 Allergy Injection 2 Or More Injection Eamon Verduzco M.D. 04/02/2021 Allergy Injection 2 Or More Injection Eamon Verduzco M.D. 03/25/2021 Allergy Injection 2 Or More Injection Eamon Verduzco M.D. 03/18/2021 Allergy Injection 2 Or More Injection Eamon Verduzco M.D. 03/13/2021 Allergy Injection 2 Or More Injection Eamon Verduzco M.D. 03/05/2021 Allergy Injection 2 Or More Injection Eamon Verduzco M.D. 02/27/2021 Allergy Injection 2 Or More Injection Eamon Verduzco M.D. 02/20/2021 Allergy Injection 2 Or More Injection Eamon Verduzco M.D. 02/11/2021 Allergy Injection 2 Or More Injection Eamon Verduzco M.D. 01/22/2021 Allergy Injection 2 Or More Injection Eamon Verduzco M.D. 01/15/2021 Allergy Injection 2 Or More Injection Eamon Verduzco M.D. 01/09/2021 Allergy Injection 2 Or More Injection Eamon Verduzco M.D. 01/02/2021 Allergy Injection 2 Or More Injection Eamon Verduzco M.D. 12/25/2020 Allergy Injection 2 Or More Injection Eamon Verduzco M.D. 12/19/2020 Allergy Injection 2 Or More Injection Eamon Verduzco M.D. 12/10/2020 Allergy Injection 2 Or More Injection Eamon Verduzco M.D. 12/04/2020 Allergy Injection 2 Or More Injection Eamon Verduzco M.D. 11/27/2020 Allergy Injection 2 Or More Injection Eamon Verduzco M.D. 11/21/2020 Allergy Injection 2 Or More Injection Eamon Verduzco M.D. 11/12/2020 Allergy Injection 2 Or More Injection Eamon Verduzco M.D. 10/31/2020 Immunizations Description No Information Available Vital Signs Date Vital Result Comment 05/15/2021 1:38pm Weight 172.50 lb Height 69 inches 5'9" Heart Rate 69 /min Respiratory Rate 16 /min BP Systolic 109 mmHg BP Diastolic 82 mmHg BMI (Body Mass Index) 25.5 kg/m2 02/20/2021 10:00am Weight 167.25 lb Height 69 inches 5'9" Heart Rate 57 /min Respiratory Rate 16 /min BP Systolic 133 mmHg BP Diastolic 73 mmHg BMI (Body Mass Index) 24.7 kg/m2 Results Description No Information Available Procedures Date Code Description Status 07/09/2021 84312 Allergy Injection 2 Or More Comp leted 07/02/2021 11777 Allergy Injection 2 Or More Comp leted 06/14/2021 32606 Allergy Injection 2 Or More Comp leted 06/04/2021 28664 Allergy Injection 2 Or More Comp leted 05/28/2021 98051 Allergy Injection 2 Or More Comp leted 05/22/2021 64013 Allergy Injection 2 Or More Comp leted 05/15/2021 43338 Office/Outpatient Established Hi gh MDM 40-54 Min Completed 05/15/2021 00206 Office/Outpatient Established Mo d MDM 30-39 Min Completed 05/15/2021 00248 Allergy Injection 2 Or More Comp leted 05/07/2021 72760 Allergy Injection 2 Or More Comp leted 04/30/2021 60561 Allergy Injection 2 Or More Comp leted 04/23/2021 64404 Allergy Injection 2 Or More Comp leted 04/16/2021 12088 Allergy Injection 2 Or More Comp leted 04/02/2021 15480 Allergy Injection 2 Or More Comp leted 03/25/2021 27713 Allergy Injection 2 Or More Comp leted 03/18/2021 44008 Allergy Injection 2 Or More Comp leted 03/13/2021 08569 Allergy Injection 2 Or More Comp leted 03/05/2021 04488 Allergy Injection 2 Or More Comp leted 02/27/2021 13479 Allergy Injection 2 Or More Comp leted 02/20/2021 55133 Office/Outpatient Established Lo w MDM 20-29 Min Completed 02/20/2021 27263 Allergy Injection 2 Or More Comp leted 02/11/2021 23782 Allergy Injection 2 Or More Comp leted 01/22/2021 80117 Allergy Injection 2 Or More Comp leted 01/15/2021 27257 Allergy Injection 2 Or More Comp leted 01/09/2021 07641 Allergy Injection 2 Or More Comp leted Medical Devices Description No Information Available Encounters Type Date Location Provider Dx Diagnosis Office Visit 05/15/2021 1:30p Main Office Eamon Verduzco M.D. R68.89 Other general symptoms and signs J30.1 Allergic rhinitis due to errol john J30.81 Allergic rhinitis due to ani mal (cat) (dog) hair and dander J30.89 Other allergic rhinitis R06.00 Dyspnea, unspecified J45.40 Moderate persistent asthma, uncomplicated K21.9 Gastro-esophageal reflux dis ease without esophagitis Assessments Date Code Description Provider 07/09/2021 J30.1 Allergic rhinitis due to pollen Eamon Verduzco M.D. 07/09/2021 J30.81 Allergic rhinitis due to animal (cat) (dog) hair and dander Eamon Verduzco M.D. 07/09/2021 J30.89 Other allergic rhinitis Eamon Verduzco M.D. Plan of Treatment Future Appointment(s):* 07/16/2021 9:20 am - Allergy Injection at Main Office * 11/13/2021 11:00 am - Eamon Verduzco M.D. at Main Office 05/15/2021 - Eamon Verduzco M.D.* R68.89 Multiple somatic complaints* Recommendations:* Should follow-up with pulmonology and gastroenterology as planned. * J30.1 Allergic rhinitis due to pollen* Recommendations:* Should build up on allergy injections as per protocol. I explained that allergy immunotherapy usually starts working after achieving maintenance dose so he should start feeling better with less congestion drip sometime next year. Effective allergen avoidance measures were still reviewed and recommended. He may use or al antihistamine as needed for itching and/or sneezing and on days he gets his allergy injections. Flonase Sensimist may help if needed. * J30.81 Allergic rhinitis due to animal (cat) (dog) hair and dander* Recommendations:* Effective allergen avoidance measures reviewed and recommended. See additional recommendations above. * J30.89 Other allergic rhinitis* Recommendations:* Effective allergen avoidance measures were reviewed and recommended. See additional recommendations above. * R06.00 Dyspnea, unspecified* Recommendations:* Should follow-up with pulmonology as planned. With lack of response to albuterol and worries steroid inhalers I feel that asthma may not be the major cause of his symptoms and stress/sighing dyspnea may play a major role with GERD contributing. Should follow-up with the GI as planned to adjust his reflux medications if needed. * J45.40 Moderate persistent asthma, uncomplicated* Recommendations:* Continue on present regimen as directed by pulmonology. Follow-up with their office as scheduled. * K21.9 Gastro-esophageal reflux disease without esophagitis* Recommendations:* Follow-up with GI as scheduled. * All * Comments:* Time spent:Reviewing notes and labs from pulmonology: 10 minutesFace to face and discussion: 35 minutesDocumenting the visit: 10 minutes * Follow up:* 6 months. Sooner if needed. Functional Status Description No Information Available Mental Status Description No Information Available Referrals Description No Information Available
--- OUTSIDE RECORDS SUMMARY | 2021-07-11 10:28 | CCD | Continuity of Care Document ---
Author Author Des VERDUZCO Organization Unknown Address [address], [address], [place] [address] Phone [phone] Care Team Providers Care Captain'S Assistant Name Role Phone Cesar Hubbard M.D. AUTM [phone] Problems Active Problems Provider Date Allergic rhinitis due to house dust mite Eamon Verduzco M.D. Onset: 07/07/2018 Note: 4++ reaction [...] Day Unknown History Medications Flonase Sensimist 27 .5mcg/[place] Suspension 2 sprays each nostril every night [...] 01/09/2021 Allergy Injection 2 Or More Injection Emaon Verduzco M.D. 01/02/2021 Allergy Injection 2 Or [...] Available Procedures Date Code Description Status 07/09/2021 90507 Allergy Injection 2 Or More Comp leted 07/02/2021 49535 Allergy Injection 2 Or More Comp leted 06/14/2021 29594 Allergy Injection 2 Or More Comp leted 06/04/2021 28078 Allergy Injection 2 Or More Comp leted 05/28/2021 48381 Allergy Injection 2 Or More Comp leted 05/22/2021 05513 Allergy Injection 2 Or More Comp leted 05/15/2021 60968 Office/Outpatient Established Hi gh MDM 40-54 Min Completed 05/15/2021 17906 Office/Outpatient Established Mo d MDM 30-39 Min Completed 05/15/2021 04451 Allergy Injection 2 Or More Comp leted 05/07/2021 08482 Allergy Injection 2 Or More Comp leted 04/30/2021 28149 Allergy Injection 2 Or More Comp leted 04/23/2021 52978 Allergy Injection 2 Or More Comp leted 04/16/2021 33066 Allergy Injection 2 Or More Comp leted 04/02/2021 98902 Allergy Injection 2 Or More Comp leted 03/25/2021 11702 Allergy Injection 2 Or More Comp leted 03/18/2021 25258 Allergy Injection 2 Or More Comp leted 03/13/2021 30104 Allergy Injection 2 Or More Comp leted 03/05/2021 41219 Allergy Injection 2 Or More Comp leted 02/27/2021 15315 Allergy Injection 2 Or More Comp leted 02/20/2021 99758 Office/Outpatient Established Lo w MDM 20-29 Min Completed 02/20/2021 69077 Allergy Injection 2 Or More Comp leted 02/11/2021 60713 Allergy Injection 2 Or More Comp leted 01/22/2021 49560 Allergy Injection 2 Or More Comp leted 01/15/2021 16932 Allergy Injection 2 Or More Comp leted 01/09/2021 17404 Allergy Injection 2 Or More Comp leted [...]
--- OUTSIDE RECORDS SUMMARY | 2021-07-11 10:28 | CCD | Continuity of Care Document ---
Author Author Des VERDUZCO Organization Unknown Address [address], [place] [address] Phone [phone] Care Team Providers Care Hose Operator Name Role Phone Cesar Hubbard M.D. AUTM [phone] Problems Active Problems Provider Date Allergic rhinitis [...] Day Unknown History Medications Flonase Sensimist 27 .5mcg/[place] Suspension 2 sprays each nostril every night [...] Information Available Procedures Date Code Description Status 06/04/2021 39102 Allergy Injection 2 Or More Comp leted 05/28/2021 92669 Allergy Injection 2 Or More Comp leted 05/22/2021 00304 Allergy Injection 2 Or More Comp leted 05/15/2021 42109 Office/Outpatient Established Hi gh MDM 40-54 Min Completed 05/15/2021 76625 Office/Outpatient Established Mo d MDM 30-39 Min Completed 05/15/2021 06828 Allergy Injection 2 Or More Comp leted 05/07/2021 93127 Allergy Injection 2 Or More Comp leted 04/30/2021 45632 Allergy Injection 2 Or More Comp leted 04/23/2021 34857 Allergy Injection 2 Or More Comp leted 04/16/2021 01058 Allergy Injection 2 Or More Comp leted 04/02/2021 77953 Allergy Injection 2 Or More Comp leted 03/25/2021 11229 Allergy Injection 2 Or More Comp leted 03/18/2021 05661 Allergy Injection 2 Or More Comp leted 03/13/2021 62348 Allergy Injection 2 Or More Comp leted 03/05/2021 89706 Allergy Injection 2 Or More Comp leted 02/27/2021 53975 Allergy Injection 2 Or More Comp leted 02/20/2021 50826 Office/Outpatient Established w MDM 20-29 Min Completed 02/20/2021 51255 Allergy Injection 2 Or More Comp leted 02/11/2021 24837 Allergy Injection 2 Or More Comp leted 01/22/2021 10658 Allergy Injection 2 Or More Comp leted 01/15/2021 43276 Allergy Injection 2 Or More Comp leted 01/09/2021 05287 Allergy Injection 2 Or More Comp leted 01/02/2021 06194 Allergy Injection 2 Or More Comp leted 12/25/2020 41544 Allergy Injection 2 Or More Comp leted 12/19/2020 64473 Allergy Injection 2 Or More Comp leted 12/10/2020 76465 Allergy Injection 2 Or More Comp leted 12/04/2020 37044 Allergy Injection 2 Or More Comp leted [...] without esophagitis Assessments Date Code Description Provider 06/04/2021 J30.1 Allergic rhinitis due to pollen Eamon Verduzco M.D. 06/04/2021 J30.81 Allergic rhinitis due to animal (cat) (dog) hair and dander Eamon Verduzco M.D. 06/04/2021 J30.89 Other allergic rhinitis Eamon Verduzco M.D. Plan of Treatment Future Appointment(s):* 06/11/2021 10:00 am - Allergy Injection at Main Office [...]
--- OUTSIDE RECORDS SUMMARY | 2021-07-11 10:28 | CCD | Continuity of Care Document ---
Author Author Des VERDUZCO Organization Unknown Address [address], [address], [place] [address] Phone [phone] Care Team Providers Care Scouring Pads Supervisor Name Role Phone Mena Barnett VIKASAdair Unavailable Problems Active Problems Provider Date Allergic rhinitis [...] Day Unknown History Medications Flonase Sensimist 27 .5mcg/[place] Suspension 2 sprays each nostril every night [...] Information Available Procedures Date Code Description Status 05/28/2021 43865 Allergy Injection 2 Or More Comp leted 05/22/2021 27293 Allergy Injection 2 Or More Comp leted 05/15/2021 88092 Office/Outpatient Established Hi gh MDM 40-54 Min Completed 05/15/2021 27586 Office/Outpatient Established Mo d MDM 30-39 Min Completed 05/15/2021 58568 Allergy Injection 2 Or More Comp leted 05/07/2021 64620 Allergy Injection 2 Or More Comp leted 04/30/2021 99531 Allergy Injection 2 Or More Comp leted 04/23/2021 64811 Allergy Injection 2 Or More Comp leted 04/16/2021 32446 Allergy Injection 2 Or More Comp leted 04/02/2021 79396 Allergy Injection 2 Or More Comp leted 03/25/2021 54310 Allergy Injection 2 Or More Comp leted 03/18/2021 62590 Allergy Injection 2 Or More Comp leted 03/13/2021 75236 Allergy Injection 2 Or More Comp leted 03/05/2021 61832 Allergy Injection 2 Or More Comp leted 02/27/2021 41798 Allergy Injection 2 Or More Comp leted 02/20/2021 41710 Office/Outpatient Established Lo w MDM 20-29 Min Completed 02/20/2021 22536 Allergy Injection 2 Or More Comp leted 02/11/2021 94268 Allergy Injection 2 Or More Comp leted 01/22/2021 50307 Allergy Injection 2 Or More Comp leted 01/15/2021 20883 Allergy Injection 2 Or More Comp leted 01/09/2021 53789 Allergy Injection 2 Or More Comp leted 01/02/2021 48719 Allergy Injection 2 Or More Comp leted 12/25/2020 14989 Allergy Injection 2 Or More Comp leted 12/19/2020 93838 Allergy Injection 2 Or More Comp leted 12/10/2020 49751 Allergy Injection 2 Or More Comp leted 12/04/2020 27102 Allergy Injection 2 Or More Comp leted 11/27/2020 60510 Allergy Injection 2 Or More Comp leted [...] without esophagitis Assessments Date Code Description Provider 05/28/2021 J30.1 Allergic rhinitis due to pollen Eamon Verduzco M.D. 05/28/2021 J30.81 Allergic rhinitis due to animal (cat) (dog) hair and dander Eamon Verduzco M.D. 05/28/2021 J30.89 Other allergic rhinitis Eamon Verduzco M.D. Plan of Treatment Future Appointment(s):* 11/13/2021 11:00 am - Eamon Verduzco M.D. [...]
--- OUTSIDE RECORDS SUMMARY | 2021-07-11 10:28 | CCD | Summary of Care ---
Author Author [facility] Organization [facility] Address Unknown Phone Unavailable Care Team Providers Care Wool Carder Name Role Phone Cesar Hubbard DO PCP Reason for Visit * Reason Comments Follow-up patient states that he cont inues to have symptoms. He has been to [facility], [facility], [facility]. Symptoms are mostly left sided with constant PND, left ear has p opping and crackling with fullness, pressure in his face with upper jaw rafy n, forehead tenderness. Has used neti pot which seemed to help a little bit. No recent meds. Encounter Details Care Team Description Date Type Department Iftikhar Lyons MD [address] [place] [address] [place] [address] [email or web address] Facial pain syndrome (Primary Dx) 06/20/2021 Office Visit [facility] [address] [place] [address] Allergies Comments Active Allergy Reactions Severity Noted Date Other reaction(s): Vomiting Nausea Nausea Nausea Codeine Nausea And Low 09/17/2017 Vomiting, Nausea Only bananas Other Hives 04/23/2020 Paroxetine Nausea Only 03/17/2021 N/V Prednisone Nausea And 07/29/2018 Vomiting, Nausea Only documented as of this encounter (statuses as of 06/20/2021) Medications End Date Status Medication Sig Dispensed Refills Start Date Active fluticasone (FLONASE) 50 2 sprays by 0 06/20 MCG/ACT nasal spray Nasal route 8 daily as needed Active metoprolol tartrate TAKE ONE 0 (LOPRESSOR) 25 MG tablet TABLET BY 9 MOUTH NEEDED FOR PALPITATIONS MAXIMUM DAILY DOSE 2 TABLETS Active paroxetine (PAXIL-CR) 0 12.5 MG 24 hr tablet 9 Active aspirin 81 MG tablet Take 81 mg by 0 mouth daily Active Multiple Vitamin Take 1 tablet 0 (MULTIVITAMIN) tablet by mouth daily Active pregabalin (LYRICA) 25 MG Take 25 mg by 0 capsule mouth Two Times Daily Active escitalopram (LEXAPRO) 10 Take 10 mg by 0 MG tablet mouth daily Active DULoxetine HCl 30 MG Oral 0 Capsule Delayed Release 0 Particles (CYMBALTA) Active Viibryd 10 MG Oral Tablet TAKE ONE 0 / TABLET BY 1 MOUTH DAILY MAY INCREASE IN 2 WEEKS TO TWO TABLETS DAILY Active Albuterol Sulfate HFA 108 INHALE 1 TO 2 0 01/02 (90 Base) MCG/ACT PUFFS BY 1 Inhalation Aerosol MOUTH EVERY 6 Solution (PROVENTIL HFA) HOURS NEEDED Active ALPRAZolam 0.25 MG Oral TAKE ONE 0 Tablet (XANAX) TABLET BY 1 MOUTH THREE TIMES A DAY NEEDED MAXIMUM DAILY DOSE 3 TABLETS Active Asmanex HFA 100 MCG/ACT INHALE 2 0 Inhalation Aerosol PUFFS BY 1 MOUTH TWO TIMES A DAY WITH SPACER Active Famotidine 20 MG Oral Take 20 mg by 0 03/18/20 2 Tablet (PEPCID) mouth Two 1 Times Daily Active Breo Ellipta 200-25 INHALE ONE 0 MCG/INH Inhalation PUFF BY MOUTH 0 Aerosol Powder Breath EVERY DAY Activated documented as of this encounter (statuses as of 06/20/2021) Active Problems Problem Noted Date Cerebral aneurysm, nonruptured 03/09/2019 Facial pain syndrome 12/07/2018 Sinus pressure 10/26/2018 documented as of this encounter (statuses as of 06/20/2021) Immunizations Name Administration Dates Next Due documented as of this encounter Social History Date Tobacco Use Types Packs/Day Years Used Former Smoker 0.5 Smokeless Tobacco: Never Used Comments: only when younger Comments Alcohol Use Standard Drinks/Week Never 0 (1 standard drink = 0.6 o z pure alcohol) Alcohol Habits Answer Date Recorded How often do you have a drink containing alcohol? Never 01/01/2020 How many drinks containing alcohol do you have on No t asked a typical day when you are drinking? How often do you have six or more drinks on one Not asked occasion? Comment: Not asked Sex Assigned at Date Recorded Not on file documented as of this encounter Last Filed Vital Signs Not on filedocumented in this encounter Progress Notes * Iftikhar Lyons MD - 06/20/2021 1:00 PM EST HISTORY OF PRESENT ILLNESS: Today we had the pleasure of seeing Des Hillman in the Otolaryngology Head and Neck Surgery clinic. The patient is a 55 y.o.male referred for evaluation of facial pain. Initial visit 10/26/18, HPI below: Pt has an approx 12 month hx of chronic left sided facial pain and sensitivity. He has pain over left maxilla, left frontal area. He has ear symptoms including ETD, sensitivity to wind in ear, eye. Pain reported as severe, nearly constant. Wakes with pain. Did have allergy evaluation that was positive. Using saline but not allergy meds. No hx of recurrent sinus infections. He has some ear popping and dizziness as well. CT head was done Sep 2017, not available for review. Per notes he has absent frontal sinuses. MRI with minimal max sinus disease. He did have a left maxillary molar removed a week ago. He has had evaluation with ENT who noted normal exam of nose, sinuses, no interv ention recommended. 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 Chang for evaluation of this. Currently observing. I discussed with him that this was unlikely sinus related. Suggested trigeminal neuralgia workup. We did get CT sinus and CT temporal bones to evaluate. Normal studies. No sinus pathology. Absent frontals. Seen 12/07/18. Overall sx have improved with chiropractic treatment but some sx st ill present especially left ear sensitivity. Stable exam. He was seen by Dr. Ellis with normal exam. Seen 10/13/19. Had dental work done which did seem to help. Seen by neurology (no jaret not available) and apparently not felt to have neuralgia. Steroids did help. Referred back for sinus evaluation. Endoscopy was normal at that visit. A CT si nus was requested. Seen 01/01/20. CT sinus images from 01/01/20 reviewed. OMUs open, no acute infection , absent frontals, minimal inflammation/mucoperiosteal thickening in maxillary s inuses. Pt continues to be evaluated by dental provider. No sinus etiology for h is pain was noted and he was referred back to neurology for evaluation as well a s dental provider. He returns today for f/u. He reports having significant headache workup with [facility] neurologists though did not tolerate medical management. He is seeing an a llergist as well and getting immunotherapy, no details available to me at this t promise. He continues to endorse left facial pain, frontal pain, periorbital pain, n citlalli congestion. He gets some relief with sinus rinses. He is not on nasal stero ids or antihistamines. He gets some relief with nasal decongestants. PAST MEDICAL HISTORY: Des Hillman has a past medical history of A-fib, Aneurysm of ophthalmic art michael, Asthma, Cerebral aneurysm, Esophageal reflux, KRIS (generalized anxiety diso rder), Headache, and Palpitations (\). PAST SURGICAL HISTORY: Des Hillman has a past surgical history that includes Loop recorder; Heart Catheterization (08/2018); and Tonsillectomy. MEDICATIONS: Current Outpatient Medications on File Prior to Visit Medication Sig Dispense Refill Albuterol Sulfate HFA 108 (90 Base) MCG/ACT Inhalation Aerosol Solution ( PROVENTIL HFA) INHALE 1 TO 2 PUFFS BY MOUTH EVERY 6 HOURS NEEDED Multiple Vitamin (MULTIVITAMIN) tablet Take 1 tablet by mouth daily ALPRAZolam 0.25 MG Oral Tablet (XANAX) TAKE ONE TABLET BY MOUTH THREE HAKEEM ES A DAY NEEDED MAXIMUM DAILY DOSE 3 TABLETS (Patient not taking: Reported on 03/27/2021) Asmanex HFA 100 MCG/ACT Inhalation Aerosol INHALE 2 PUFFS BY MOUTH TWO TI MES A DAY WITH SPACER (Patient not taking: Reported on 03/27/2021) aspirin 81 MG tablet Take 81 mg by mouth daily (Patient not taking: Repor clarissa on 06/20/2021) Breo Ellipta 200-25 MCG/INH Inhalation Aerosol Powder Breath Activated IN VALDOVINOS ONE PUFF BY MOUTH EVERY DAY (Patient not taking: Reported on 06/20/2021) DULoxetine HCl 30 MG Oral Capsule Delayed Release Particles (CYMBALTA) ( Patient not taking: Reported on 03/17/2021) escitalopram (LEXAPRO) 10 MG tablet Take 10 mg by mouth daily (Patient no t taking: Reported on 03/17/2021) Famotidine 20 MG Oral Tablet (PEPCID) Take 20 mg by mouth Two Times Daily fluticasone (FLONASE) 50 MCG/ACT nasal spray 2 sprays by Nasal route koko y as needed metoprolol tartrate (LOPRESSOR) 25 MG tablet TAKE ONE TABLET BY MOUTH NEEDED FOR PALPITATIONS MAXIMUM DAILY DOSE 2 TABLETS (Patient not taking: Rep orted on 03/27/2021) 0 paroxetine (PAXIL-CR) 12.5 MG 24 hr tablet (Patient not taking: Reported on 03/17/2021) pregabalin (LYRICA) 25 MG capsule Take 25 mg by mouth Two Times Daily (Miguel peterson not taking: Reported on 03/27/2021) Viibryd 10 MG Oral Tablet TAKE ONE TABLET BY MOUTH DAILY MAY INCREASE IN 2 WEEKS TO TWO TABLETS DAILY (Patient not taking: Reported on 03/27/2021) No current facility-administered medications on file prior to visit. ALLERGIES: Des Hillman is allergic to other, paroxetine, prednisone, and codeine. SOCIAL HISTORY: Smoking: reports that he has quit smoking. He quit after 0.50 years of use. He has never used smokeless tobacco. Drinking: reports no history of alcohol use. FAMILY HISTORY: family history includes Depression in his mother. PHYSICAL EXAM: GENERAL APPEARANCE: Normal stature and nutrition. Healthy general appearance. COMMUNICATION/VOICE: Age appropriate communication. Normal pitch and clarity. HEAD: Atraumatic. No gross craniofacial deformities. No abnormal masses or lesio ns on inspection of head. TM clear AU EXTERNAL EARS/NOSE: Normal anatomy of auricles, nose grossly normal without defo rmity. INTERNAL NOSE: Anterior rhinoscopy: No mucosal lesions. Left NSD. Normal turbina jaret. ORAL CAVITY: No masses or lesions of lips, gums, buccal mucosa, anterior tongue, and hard palate. OROPHARYNX: Normal palate, small/absent tonsils and normal appearing base of ton stanley. NASAL ENDOSCOPY: In a separately identifiable procedure, the patient underwent r igid nasal endoscopy. Lidocaine 4% with Afrin (1:1) was applied to the nasal cavity. The procedure wa s described in detail to the patient. The risks benefits, and alternatives were thoroughly discussed and the patient wished to proceed with the recommended pro cedure. After topical anesthesia and decongestion, the 3 mm scope was passed. T he nasal cavities were examined. The following abnormal findings were noted: no polyps or purulence seen, mild mu cosal congestion noted. I was present for the entire procedure. PROCEDURE: none PATHOLOGY: none RADIOLOGY: MRI brain; CT sinus, CT temporal bone ASSESSMENT AND RECOMMENDATIONS: In summary, Des Hillman is a 55 y.o. male w ith continued chronic left facial pain. He has severe sx left side face includin g over sinuses, ear, forehead. Absent frontals. Imaging of sinuses and temporal bones clear in past. Recent MRA brain was also reviewed with clear sinuses. He w as referred back again for re-evaluation for sinus etiology. I do not have any s inus procedures or surgery to offer that I feel would help with his symptoms. I recommend cont med mgmt with his yard truck driver and neurologist. Consider flonase and OTC antihistamines. Discuss possible astelin with his yard truck driver. If he would li ke to pursue his sinuses further then I recommend he get another opinion from an other ENT surgeon as I do not have more to offer in this regard. documented in this encounter Plan of Treatment Health Maintenance Due Date Last Done Comments Hepatitis C Screening (B. 1965 [id number]) MMR Vaccines (1 of - 1966 Standard series) Varicella Vaccines (1 of 1965 2 - 2-dose childhood series) DTaP,Tdap,and Td Vaccines 1971 (1 - Tdap) HIV Screening 1977 Colon Cancer Screening 10 2014 yrs Zoster Vaccines (1 of 2) 2014 COVID-19 Vaccine (3 - 04/13/2021 10/11/2020, Booster for Pfizer 09/20/2020 series) Influenza Vaccine 05/02/2021 HIB Vaccines Aged Out No longer eligible based on patient's age to complete this topic Hepatitis A Vaccines Aged Out No longer eligibl e based on patient's age to complete this topic Hepatitis B Vaccines Aged Out No longer eligibl e based on patient's age to complete this topic IPV Vaccines Aged Out No longer eligible based on patient's age to complete this topic Pneumococcal Vaccine: Aged Out No longer eligib le based on patient's age to Pediatrics (0 to 5 Years) complete this topic and At-Risk Patients (6 to 64 Years) documented as of this encounter Results Not on filedocumented in this encounter Visit Diagnoses Diagnosis Facial pain syndrome - Primary Other facial nerve disorders documented in this encounter Care Teams Start Date End Date Wool Carder Relationship Specialty 03/27/21 [place] [address] documented as of this encounter
--- OUTSIDE RECORDS SUMMARY | 2021-07-11 10:28 | CCD | Continuity of Care Document ---
Author Author Des Wallace Organization Unknown Address [address] [place] [address] Phone [phone] Care Team Providers Care Slab Puller Name Role Phone Cesar Hubbard M.D. AUTM [phone] Problems Active Problems Provider Date Allergic rhinitis [...] Day Unknown History Medications Flonase Sensimist 27 .5mcg/[place] Suspension 2 sprays each nostril every night 27.300ml J30.1 Eamon Verduzco M.D. 02/20/2021 - 05/14/2021 Medications Administered in Office Medication SIG Qnty Indications Ordering Provider Date Allergy Injection 2 Or More Injection Eamon Verduzco M.D. 06/04/2021 Allergy Injection 2 Or More Injection Eamon Verdzuco M.D. 05/28/2021 Allergy Injection 2 Or More [...] Available Procedures Date Code Description Status 06/04/2021 87261 Allergy Injection 2 Or More Comp leted 05/28/2021 80632 Allergy Injection 2 Or More Comp leted 05/22/2021 04512 Allergy Injection 2 Or More Comp leted 05/15/2021 33816 Office/Outpatient Established Hi gh MDM 40-54 Min Completed 05/15/2021 10736 Office/Outpatient Established Mo d MDM 30-39 Min Completed 05/15/2021 33557 Allergy Injection 2 Or More Comp leted 05/07/2021 83967 Allergy Injection 2 Or More Comp leted 04/30/2021 73929 Allergy Injection 2 Or More Comp leted 04/23/2021 08545 Allergy Injection 2 Or More Comp leted 04/16/2021 05317 Allergy Injection 2 Or More Comp leted 04/02/2021 87894 Allergy Injection 2 Or More Comp leted 03/25/2021 95526 Allergy Injection 2 Or More Comp leted 03/18/2021 58103 Allergy Injection 2 Or More Comp leted 03/13/2021 84180 Allergy Injection 2 Or More Comp leted 03/05/2021 17818 Allergy Injection 2 Or More Comp leted 02/27/2021 89250 Allergy Injection 2 Or More Comp leted 02/20/2021 33365 Office/Outpatient Established Lo w MDM 20-29 Min Completed 02/20/2021 06209 Allergy Injection 2 Or More Comp leted 02/11/2021 41144 Allergy Injection 2 Or More Comp leted 01/22/2021 13173 Allergy Injection 2 Or More Comp leted 01/15/2021 43454 Allergy Injection 2 Or More Comp leted 01/09/2021 70036 Allergy Injection 2 Or More Comp leted 01/02/2021 01527 Allergy Injection 2 Or More Comp leted 12/25/2020 13316 Allergy Injection 2 Or More Comp leted 12/19/2020 23308 Allergy Injection 2 Or More Comp leted 12/10/2020 35247 Allergy Injection 2 Or More Comp leted 12/04/2020 38740 Allergy Injection 2 Or More Comp leted [...]
--- OUTSIDE RECORDS SUMMARY | 2021-07-11 10:29 | CCD ---
Author Author [facility] Organization [facility] Address Unknown Phone Unavailable Care Team Providers Care Deputy City Clerk Name Role Phone BrewerLeroy jessica Unavailable PROBLEMS Type Condition ICD9-CM Code [id number] Code Onset Dates Condition S tatus W/U Status Risk SNOMED Code Notes Problem Chronic cough R05 Active confirmed 084326 08 Problem Paroxysmal atrial fibrillation I48.0 Active confir med 064725602 Problem Seasonal allergic rhinitis due to pollen J30.1 Active confirmed 26262803 Problem Pain in joint of left shoulder M25.512 Active confi rmed 026244409 Problem Gastroesophageal reflux disease with esophagitis K 21.0 Active confirmed 964880125 Problem Chronic fatigue R53.82 Active confirmed 8422 9001 ALLERGIES Allergen (clinical drug ingredient) Drug/Non Drug Allergy do cumented on EMR Reaction Allergy Type Onset Date Status Codeine Phosphate([facility] Code:[address]-21) GI problems Drug Allergy Active PredniSONE GI issues Drug Allergy Active ENCOUNTERS from 1965 to 2021-04-16 Encounter Location Date Provider Diagnosis [facility] [address] Floor [phone] [place] [address] Mar, Leroy Brewer IMMUNIZATIONS No Information SOCIAL HISTORY Tobacco Use: Social History Observation Description Date Details (start date - stop date) Never Smoker Sex Assigned At : Social History Observation Description Sex Assigned At Unknown Education: Question Answer Notes Level of Education: Finished College Language: Question Answer Notes Languages spoken: [place] Islander [employer]: Question Answer Notes [employer] Alcohol Screening: Question Answer Notes Did you have a drink containing alcohol in the past year? No Points 0 Interpretation Negative Tobacco Use: Question Answer Notes Are you a: never smoker REASON FOR REFERRAL No Information VITAL SIGNS No information MEDICATIONS Medication SIG (Take, Route, Frequency, Duration) Notes Start Da te End Date Status Flecainide Acetate 100 MG Orally bid Active Zantac 300 MG 1 tablet Orally bid Ac tive Eliquis 5 MG Orally bid Active Cardizem 30 MG 1 tablet Orally bid A ctive PROCEDURES No Information RESULTS No Results REASON FOR VISIT new patient appointment MEDICAL (GENERAL) HISTORY Type Description Date Medical History gastro issues Surgical History tonsillectomy Hospitalization History 4-5 times in the last year r egarding abd issues and pain in [facility] 2018 Goals Section No Information Health Concerns No Information MEDICAL EQUIPMENT No Information MENTAL STATUS No Information FUNCTIONAL STATUS No Information ASSESSMENTS No Information PLAN OF TREATMENT Medication Medication Name Sig Start Date Stop Date Flecainide Acetate 100 MG Orally bid Eliquis 5 MG Orally bid Cardizem 30 MG 1 tablet Orally bid Zantac 300 MG 1 tablet Orally bid Insurance Providers Payer Name Payer Address Payer Phone Insured Name Patient Relati onship to Insured Coverage Start Date Coverage End Date [facility] [address] [address] [facility] [place] [id number] Andi Krause
--- OUTSIDE RECORDS SUMMARY | 2021-07-11 10:29 | CCD | Continuity of Care Document ---
Author Author Des VERDUZCO Organization Unknown Address [address], [address], [place] [address] Phone [phone] Care Team Providers Care Imaging Analyst Name Role Phone Mena Barnett Unavailable Problems Active Problems Provider Date Allergic [...] 2 Cigarettes Per Day Smoking Status Reviewed: 02/20/21 Patient is a former smoker 2 Cigarettes Per Day Allergies, Adverse Reactions, Alerts Active Allergies Criticality Reaction | Severity Comments Date Prednisone Unable to assess criticality 03/25/2019 Codeine Sulfate Unable to assess criticality 03/25/2019 Medications Active Medications SIG Qnty Indications Ordering Provide r Date Flonase Sensimist 27 .5mcg/[place] Suspension 2 sprays each nostril every night 27.300ml J30.1 Eamon Verduzco M.D. 02/20/2021 Asmanex HFA 100mcg/Act Aerosol Inhale 2 Puffs By Mouth Two Times A Day With Spacer Unkno wn Albuterol Sulfate HFA 108(90Base) mcg/Act Aerosol Inhale 1 To 2 Puffs By Mouth Every 6 Hours as Needed Unknown Viibryd 10mg Tablets Take One Tablet By Mouth Daily May Increase In 2 Weeks To Two Tablets Daily Unknown Medications Administered in Office Medication SIG Qnty Indications Ordering Provider Date Allergy Injection 2 Or More Injection Eamon Verduzco M.D. 04/30/2021 Allergy Injection 2 Or More Injection Eamon Verduzco M.D. 04/23/2021 Allergy Injection 2 Or More Injection Eamno Verduzco M.D. 04/16/2021 Allergy Injection 2 Or More Injection Eamon Verduzco M.D. 04/02/2021 Allergy Injection 2 Or More Injection Eamon Verduzco M.D. 03/25/2021 Allergy Injection 2 Or More Don Verduzco M.D. 03/18/2021 Allergy Injection 2 Or More Injection Eamon Verduzco M.D. 03/13/2021 Allergy Injection 2 Or More Injection Eamon Verduzco M.D. 03/05/2021 Allergy Injection 2 Or More Injection Eamon Verduzco M.D. 02/27/2021 Allergy Injection 2 Or More Injection Eamon Verduzco M.D. 02/20/2021 Allergy Injection 2 Or More Injection Eamon Verduzco M.D. 02/11/2021 Allergy Injection 2 Or More Don Verduzco M.D. 01/22/2021 Allergy Injection 2 Or [...] Available Vital Signs Date Vital Result Comment 02/20/2021 10:00am Weight 167.25 lb Height 69 inches 5'9" Heart Rate 57 /min Respiratory Rate 16 /min BP Systolic 133 mmHg BP Diastolic 73 mmHg BMI (Body Mass Index) 24.7 kg/m2 10/31/2020 9:46am Weight 181.00 lb Height 69 inches 5'9" Heart Rate 62 /min BP Systolic 120 mmHg BP Diastolic 70 mmHg O2 % BldC Oximetry 98 % BMI (Body Mass Index) 26.7 kg/m2 Results Description No Information Available Procedures Date Code Description Status 04/30/2021 59011 Allergy Injection 2 Or More Comp leted 04/23/2021 93267 Allergy Injection 2 Or More Comp leted 04/16/2021 68895 Allergy Injection 2 Or More Comp leted 04/02/2021 85228 Allergy Injection 2 Or More Comp leted 03/25/2021 20960 Allergy Injection 2 Or More Comp leted 03/18/2021 72963 Allergy Injection 2 Or More Comp leted 03/13/2021 91052 Allergy Injection 2 Or More Comp leted 03/05/2021 71822 Allergy Injection 2 Or More Comp leted 02/27/2021 08349 Allergy Injection 2 Or More Comp leted 02/20/2021 18587 Office/Outpatient Established w MDM 20-29 Min Completed 02/20/2021 09558 Allergy Injection 2 Or More Comp leted 02/11/2021 31650 Allergy Injection 2 Or More Comp leted 01/22/2021 43429 Allergy Injection 2 Or More Comp leted 01/15/2021 50408 Allergy Injection 2 Or More Comp leted 01/09/2021 52369 Allergy Injection 2 Or More Comp leted 01/02/2021 54919 Allergy Injection 2 Or More Comp leted 12/25/2020 75600 Allergy Injection 2 Or More Comp leted 12/19/2020 81697 Allergy Injection 2 Or More Comp leted 12/10/2020 33796 Allergy Injection 2 Or More Comp leted 12/04/2020 35173 Allergy Injection 2 Or More Comp leted 11/27/2020 30072 Allergy Injection 2 Or More Comp leted 11/21/2020 79063 Allergy Injection 2 Or More Comp leted 11/12/2020 26143 Allergy Injection 2 Or More Comp leted 10/31/2020 10450 Allergy Injection 2 Or More Comp leted Medical Devices Description No Information Available Encounters Description No Information Available Assessments Date Code Description Provider 04/30/2021 J30.1 Allergic rhinitis due to pollen Eamon Verduzco M.D. 04/30/2021 J30.81 Allergic rhinitis due to animal (cat) (dog) hair and dander Eamon Verduzco M.D. 04/30/2021 J30.89 Other allergic rhinitis Eamon Verduzco M.D. Plan of Treatment Future Appointment(s):* 05/07/2021 9:40 am - Allergy Injection at Main Office * 05/15/2022 1:30 pm - Eamon Verduzco M.D. at Main Office 02/20/2021 - Eamon eVrduzco M.D.* J30.1 Allergic rhinitis due to pollen* New Medication:* Flonase Sensimist 27.5 mcg/[place] - 2 sprays each nostril every night * Recommendations:* Effective allergen avoidance measures were reviewed and recommended. He should continue on build-up allergen immunotherapy as per protocol. The risks and benefits associated with allergen IT were reviewed and discussed. It was recommended that he restart steroid-based nasal spray (OTC Flonase Sensimist) to help control his nasal congestion. The nasal spray should be used on a consistent, daily basis to be effective. He may use oral antihistamine as needed for itching and/or sneezing and on days he gets his allergy injections. * J30.81 Allergic rhinitis due to animal (cat) (dog) hair and dander* Recommendations:* Effective allergen avoidance measures reviewed and recommended. See additional recommendations above. * J30.89 Allergic rhinitis due to dust mites.* Recommendations:* Effective allergen avoidance measures were reviewed and recommended. See additional recommendations above. * J45.40 Moderate persistent asthma, uncomplicated* Recommendations:* Continue on present regimen as directed by pulmonology. Follow-up with their office as scheduled. * K21.9 Gastro-esophageal reflux disease without esophagitis* Recommendations:* Follow-up with GI as scheduled. * All * Follow up:* 5-6 months. Sooner if needed. Functional Status Description No Information Available Mental Status Description No Information Available Referrals Description No Information Available
--- OUTSIDE RECORDS SUMMARY | 2021-07-11 10:29 | CCD | Clinical Summary ---
Author Author [facility] Organization Formerly [facility] Address [address] [place] [address] Phone Care Team Providers Care Sr Solutions Consultant Name Role Phone Cesar Hubbard DO PP [phone] Cesar Hubbard DO Unavailable [phone] Vivian Han Unavailable [phone] Reason for Referral Date Encounter Description Provider Reason for Referral 05/19/21 Cesar Hubbard DO Request Consultation By Specialist Reason for Visit and Chief Complaint visit for: 55-year-old male in person follow-up last visit from 03/28/2021Wed ~ ~Was seen by neurology no ongoing headaches facial pain MRI showed some in dentation of the ventral cervical cord we are arranging a spine surgical referra emmy ~ ~Consultation April 28, 2021 reviewed he has been seen by [facility] orthopedics in the past elevated markers for MITALI jaw pain neck pain pain when he breathes deep they suggested tertiary center evaluation for inflammatory proce ss. ~ ~He had a recent redo cervical MRI that does show some cervical spondylosi s C5 667 not really severe traumatic and degenerative change. Their impression was likely rheumatologic or inflammatory condition they suggested referral with rheumatology they discussed operative intervention he has had 4 teeth removed wi thout relief of jaw pain he is concerned that the pain is not coming from the ce rvical spine. ~ ~Neurology follow-up April 03, 2021 reviewed again [place] [facility] [facility] [place] they recommended Botox 25 days a month with headaches occipital frontal lasting all day. Really no TMJ pain their asse ssment is atypical facial pain per [facility] [place] supraorbital neuralgia chronic tension headaches intractable chronic migraine possible fibromyalgia and chronic fatigue left-sided facial jaw and sinus pain dizziness and tinnitus of the ear chronic neck pain cervical spondylosis 2.5 and 5.5 mm ophthalmic artery aneurys ms mild carpal tunnel left they suggested follow-up with neurosurgery follow-up with [facility] continue gabapentin he is no longer on that though. And fol low-up in a few months with facial bone MRIs. ~ ~Very lengthy impression from lmonary consult April 02, 2021 reviewed assessment was severe persistent asth ma and allergies follow-up 2 to 3 months after restarting Xolair ~ ~Des has nu merous ongoing chronic symptoms 1 cervical spine findings as outlined above 2 ch ronic gastrointestinal symptoms with reflux 3 prior A. fib when he was drinking alcohol for chronic headaches and facial pain 5 asthma and allergies. ~ ~From a GI standpoint he burps 22/02 indigestion he seen gastroenterology in [place] GI in [place] has him on a new proton pump inhibitor and th ada are planning a follow-up later this week they are contemplating an upper endo scopy again please have him in the past ~ ~For his A. fib this started back 3 ye ars ago when he was drinking alcohol he has not had alcohol in about that long n ow. He has had extensive cardiac work-up he still feels his PACs and PVCs no me ntion of chest discomfort or chest pain. ~ ~His main complaint is that of the ch ronic headaches and facial pain he does have dizziness also he does have chronic allergies also he seen 3 neurologists or more he has seen at least 5 if not 6 or more generous/orofacial surgeons he has chronic pain where his teeth were elías christen about a year and a half ago we discussed there may be chronic neuropathic pa in causing this as Novocain does provide temporary relief he did not tolerate ga bapentin or Lyrica. The RACHELLES MD - The Chief Complaint is: Patient ambulates to room 19, here today in follow up on headaches. Patient reports no change with t his. 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 Problems Includes: Problems addressed during this encounter and other active Problems Current Visit Onset Date - Time Resolved Date - Time Provider C ondition Status Headache 12/10/2020 - 12:00AM Cesar Hubbard DO Active Note: Unchanged Asthma Mild 12/10/2020 - 6:43PM Cesar Noguera O Active Note: Pulmonary and allergy consultation on file positive methacholine challenge Esophageal Reflux 12/10/2020 - 7:04PM Cesar fuchs DO Active Generalized Anxiety Disorder 12/10/2020 - 12:00AM Lindsey Hubbard DO Active Note: Unchanged Past Visits Onset Date - Time Resolved Date - Time Provider Co ndition Status Allergic Rhinitis 12/10/2020 - 6:43PM Cesar fuchs DO Active Note: Multiple positive find ings on skin testing immune therapy was advised Atrial Fibrillation 12/10/2020 - 7:05PM Cesar holm DO Active Note: transient has seen car juan Ophthalmic Artery Aneurysm 12/10/2020 - 7:04PM Cesar Hubbard DO Active Note: see NS consults Palpitations 12/10/2020 - 12:00AM Cesar Hubbard DO Active Note: Unchanged Plan of Treatment Pending Tests Order Diagnosis Results Due Ordering Provi isidro In House Meds - Immunizations Please give immunizations toda y per Immun. tab Other cervical disc displacement, unsp cervical region 05/19/21 Cesar Hubbard DO [id number] - *Revisit Acute Acute Follow-up Well Headac he, unspecified 05/19/21 Cesar Hubbard DO Referrals To Diagnosis Neurology Headache, unspecifie d [facility] and facial pain has seen multiple neurologists and multiple ENT/orofacial providers. [facility] Future Appointments Date Time Location Provider Acute Follow-up Well 07/14/2021 10:20AM [facility] Lindsey Hubbard DO Future Tests Order Diagnosis Results Due Ordering Provid er Records Immunizations Headache, unspecified 05/19/21 Gwyn Hubbard DO - Instructions for patient - Return to the clinic if condition wors ens or new symptoms arise - Follow-up visit Assessments Includes: Assessments from this encounter - Headache - Mild asthma - Esophageal reflux - Arthralgias of multiple sites - Bulging cervical disc - Fatigue - Generalized anxiety disorder See updated problem list for history/discussion/assessment and plan for today's problems. See also health tab and appropriate flow sheets. Instructions Includes: Instructions from this encounter Instructions to patient Instructions for patient Education and Decision Aids were provide d during visit for: Patient appeared to understand therapeut ic regimen Medical Equipment - Implanted Devices Includes: Current DevicesNo Medical Equipment Recorded Medications Includes: Medications discussed during this encounter and other current Medicati ons Discontinued / Stopped on this date Lindsey Hubbard DO on 03/17/2021 Famotidine 20 MG Oral Tablet Provider: Cesar Hubbard DO Diagnosis: Gastro-esophageal re flux disease without esophagitis Current Medications (continue as prescribed) Pantoprazole Sodium 40 MG Oral Tablet Delayed Release 2020 Provider: Diagnosis: Daily Multivitamin Oral Capsule 01/15/2021 Provider : Diagnosis: Adult Aspirin Regimen 81 MG Oral Tablet Delayed Release 12/31 Provider: Diagnosis: Medications Administered Includes: Administered Medications from this encounterNo Administered Medications Recorded Vital Signs Includes: Vital Signs from this encounter Vital Name 05/19/2021 09:34A Blood Pressure Sitting L 104/62 BP Cuff Size Regular Pulse Rate-Sitting (bpm) 66 Pulse Rhythm Regular Respiration Rate (breaths/min) 18 Temp-Tympanic (F) 96.6 Weight (lb) 175 Pain Level 8 Oxygen Saturation (%) 96 Flow Rate (l/min) (None (Room Air)) FiO2 (%) 21 Results Includes: Results discussed during this encounterNo Results Recorded For Specified Dates History of Present Illness Includes: History of Present Illness from this encounter Des Hillman is a 55 year old male. - Allergy list reviewed - Problem list reviewed - Medication reconciliation performed - Medication list reviewed with patient and updated in EMR - - No request for consultation by special ist no previous emergency room visit Social History Description Last Updated Smoking status 05/19/2021 : Former smoker as a kid No secondhand cigarette smoke exposure 11/29/2020 Procedures and Surgical History Includes: Procedures from this encounter Procedures Code Diagnosis Performing Provider Service Location Service Date Influenza virus vaccine, preservative free, 6 months and up [address] Encounter for immunization Cesar Hubbard DO 05/19/2021 continue current medication except where otherwise no clarissa Transition in care medication list update medical regimen review Clinical summary provided to patient Clinical summary provided to patient Summary provided electronically in CCDA format & reasonable certainty of receipt Surgical History Last Updated History of cardiovascular surgery cath 09/2018 021 Medical History Includes: Medical History addressed during this encounterNo Medical History Recorded Family History Includes: Family History addressed during this encounter Description Last Updated Family history of heart disease 11/29/2020 Maternal history of depression 11/29/2020 Review of Systems Includes: Review of Systems from this encounterNo Review of Systems Recorded Mental Status Includes: Mental Status from this encounterNo Mental Status Recorded Functional Status Includes: Functional Status from this encounterNo Functional Status Recorded Physical Exam Includes: Physical Exam from this encounter Skin: -the skin color and pigmentation were normal -the skin general appearance was normal Ears, Nose, Throat: -no external nose deformities -no nasal discharge seen Head: -no evidence of a head injury -the head was normocephalic General Status: -in no acute distress -well developed Musculoskeletal System: -overall findings were normal unless noted otherwise Vital Signs: -current vital signs reviewed Physical Findings Free Text: - neurologic exam grossly intact Immunizations Includes: Immunizations addressed during this encounter Vaccine Dose # Date Site Reaction(s) Status Source Influenza, seasonal, injectable 1 05/19/2021 Left Deltoid Complete (Administered) [facility] Note: Administered by Deanna Arizmendi RN Allergies Includes: Active Allergies Substance Type Reaction Onset Date - Time Resolved Date - Ti me Status PARoxetine HCl Intolerance N/DIZZY /sexual SE 12/16/2020 - 12:51PM Active Codeine and Related Allergy Nausea 11/29/2020 - 8:52AM Active Encounters Encounter Provider Location Date Check-In Time Check-Out Time D iagnosis Acute Follow-up Well Cesar Hubbard [facility] 1 9:20AM 10:55AM Assessment of Headache, Generalized Anxi ety Disorder, Bulging Intervertebral Disc Cervical, Fatigue, Arthralgias Multiple Sites, Asthma Mild, Esophageal Reflux Insurance Includes: Active Insurance Policies Plan Name Member ID Group # Subscriber Relationship Effective Da jaret 1 - [employer]- [id number] Des Hillman Self Advance Directives Includes: Current Advance Directives Directive Pat Aware Third Libertarian Effective Date Reviewed Status packet given Pt Bill of Rights, Priv Prac, Ad Dir Yes 11/29/2020 Current and Verified Note: Pt declined AD packet Health Concerns Includes: Health Concerns for current assessmentsNo Active Health Concerns Recorded Goals Includes: Active Goals for current assessmentsNo Active Goals Recorded Interventions Includes: Interventions for current assessmentsNo Interventions Recorded Evaluations & Outcomes Includes: Evaluations & Outcomes for current assessmentsNo Outcomes Recorded
--- OUTSIDE RECORDS SUMMARY | 2021-07-11 10:29 | CCD | Continuity of Care Document ---
Author Author Des VERDUZCO Organization Unknown Address [address], [address], [place] [address] Phone [phone] Care Team Providers Care Sewing Machine Operator Name Role Phone Mena Barnett VIKASAdair Unavailable [...] Ordering Provide r Date Flonase Sensimist 27 .5mcg/[place] Suspension 2 sprays each nostril every night [...] Information Available Procedures Date Code Description Status 05/07/2021 11354 Allergy Injection 2 Or More Comp leted 04/30/2021 28484 Allergy Injection 2 Or More Comp leted 04/23/2021 11131 Allergy Injection 2 Or More Comp leted 04/16/2021 92892 Allergy Injection 2 Or More Comp leted 04/02/2021 08579 Allergy Injection 2 Or More Comp leted 03/25/2021 79513 Allergy Injection 2 Or More Comp leted 03/18/2021 30618 Allergy Injection 2 Or More Comp leted 03/13/2021 12912 Allergy Injection 2 Or More Comp leted 03/05/2021 22129 Allergy Injection 2 Or More Comp leted 02/27/2021 33626 Allergy Injection 2 Or More Comp leted 02/20/2021 43330 Office/Outpatient Established Lo w MDM 20-29 Min Completed 02/20/2021 52883 Allergy Injection 2 Or More Comp leted 02/11/2021 44605 Allergy Injection 2 Or More Comp leted 01/22/2021 88701 Allergy Injection 2 Or More Comp leted 01/15/2021 66991 Allergy Injection 2 Or More Comp leted 01/09/2021 59348 Allergy Injection 2 Or More Comp leted 01/02/2021 54402 Allergy Injection 2 Or More Comp leted 12/25/2020 07937 Allergy Injection 2 Or More Comp leted 12/19/2020 56045 Allergy Injection 2 Or More Comp leted 12/10/2020 93563 Allergy Injection 2 Or More Comp leted 12/04/2020 33569 Allergy Injection 2 Or More Comp leted 11/27/2020 43331 Allergy Injection 2 Or More Comp leted 11/21/2020 26894 Allergy Injection 2 Or More Comp leted 11/12/2020 45912 Allergy Injection 2 Or More Comp leted Medical Devices Description No Information Available Encounters Description No Information Available Assessments Date Code Description Provider 05/07/2021 J30.1 Allergic rhinitis due to pollen Eamon Verduzco M.D. 05/07/2021 J30.81 Allergic rhinitis due to animal (cat) (dog) hair and dander Eamon Verduzco M.D. 05/07/2021 J30.89 Other allergic rhinitis Eamon Verduzco M.D. Plan of Treatment Future Appointment(s):* 05/15/2021 1:20 pm - Allergy Injection at Main Office * 05/15/2022 1:30 pm - Eamon Verduzco M.D. at Main Office 02/20/2021 - Eamon Verduzco M.D.* J30.1 Allergic rhinitis due to pollen* New Medication:* Flonase Sensimist 27.5 mcg/[place] - 2 sprays each nostril every night [...]
--- OUTSIDE RECORDS SUMMARY | 2021-07-11 10:29 | CCD | Continuity of Care Document ---
Author Author Des BALDERRAMA M.D. Organization Unknown Address [address] [place] [address] Phone [phone] Care Team Providers Care Arborist Representative Name Role Phone Mena Barnett M.D. AUTM [phone] Cesar Hubbard D.O. AUTM [phone] Problems Active Problems Provider Date Gastroesophageal reflux disease Glenn Balderrama M.D. Ons et: 10/04/2018 Irritable bowel syndrome Glenn Balderrama M.D. Onset: Social History Type Date Description Comments Sex Unknown ETOH Use Denies alcohol use Tobacco Use Start: Unknown End: Unknown Patient is a former smoker QUIT 06/19 Allergies and adverse reactions Active Allergies Criticality Reaction | Severity Comments Date Codeine Unable to assess criticality Free Text 10/04/2018 Prednisone Unable to assess criticality Free Text 10/04/2018 Medications Active Medications SIG Qnty Indications Ordering Provide r Date Pantoprazole Sodium 40mg Tablets D R 1 cap by mouth twice a day 60tabs Glenn Balderrama M.D. Carafate 1gm Tablets 1 tab by mouth twice a day 60tabs Glenn Balderrama M.D. 021 Gaviscon Extra Strength 160-105mg Chewtabs 1 tab by mouth four times a day before meals,and at bedtime 360u nits Glenn Balderrama M.D. 05/01/2021 Aspirin Low Dose 81mg Tablets DR Unknown Multiple Vitamin Tablets Unknown Xolair 150mg/ml Soln Prefill Syringe Unknown Immunizations Description No Information Available Vital Signs Date Vital Result Comment 05/22/2021 12:04pm Height 69 inches 5'9" Weight 176.00 lb BP Systolic 129 mmHg BP Diastolic 77 mmHg Heart Rate 59 /min BMI (Body Mass Index) 26.0 kg/m2 Weight 79.834 kg Body Temperature 96.8 F 05/01/2021 11:40am Height 69 inches 5'9" Weight 169.00 lb BP Systolic 116 mmHg BP Diastolic 68 mmHg Heart Rate 60 /min BMI (Body Mass Index) 25.0 kg/m2 Weight 76.658 kg Body Temperature 97.3 F Results Description No Information Available Procedures Date Code Description Status 05/22/2021 80132 Office/Outpatient Established Lo w MDM 20-29 Min Completed 05/01/2021 20982 Office/Outpatient Established Mo d MDM 30-39 Min Completed Medical Devices Description No Information Available Encounters Type Date Location Provider Dx Diagnosis Office Visit 05/22/2021 12:00p Main Office Glenn Balderrama M.D. R 12 Heartburn Office Visit 05/01/2021 11:45a Main Office Glenn Balderrama M.D. R 12 Heartburn K58.8 Other irritable bowel syndro me Assessments Date Code Description Provider 05/22/2021 R12 Heartburn Glenn nair M.D. 05/01/2021 R12 Heartburn Glenn nair M.D. 05/01/2021 K58.8 Other irritable bowel syndrome G uche Balderrama M.D. Plan of Treatment Future Appointment(s):* 07/11/2021 11:45 am - Glenn Balderrama M.D. at Main Office 05/22/2021 - Glenn Balderrama M.D.* R12 Heartburn* New Xrays:* Ultrasound of the Gallbladder, Scheduled: 05/29/21 * Comments:* 55 yo wm who presented for a h/o heartburn. He has been scoped by [facility] in [place]. No c/o abdominal pain, weight loss, change in bowel habits, or rectal bleeding. No family h/o colon cancer. No h/o chest pain, or sob. He presents with the same issues of heartburn. He is off meds. Plan:1. Egd + biopsies.2. Gallbladder us.3. Maintain meds. Functional Status Description No Information Available Mental Status Description No Information Available Referrals Description No Information Available
--- OUTSIDE RECORDS SUMMARY | 2021-07-11 10:29 | CCD | Continuity of Care Document ---
Author Author Des SAMANIEGO Organization Unknown Address [address], [address], [place] [address] Phone [phone] Care Team Providers Care Ball Mill Operator Name Role Phone Mena Barnett VIKASAdair Unavailable Problems Active Problems Provider Date Allergic rhinitis due to house dust mite Eamon Samaniego M.D. Onset: 07/07/2018 Note: 4++ reaction to dust mites on scra tch test completed in 2020. Allergic rhinitis caused by mold Eamon Samaniego M.D. O nset: 07/07/2018 Note: 4+ reaction [...] Dyspnea Onset: 07/07/2018 Gastroesophageal reflux disease Eamon Samaniego M.D. On set: 2020 Social History Type [...] Day Unknown History Medications Flonase Sensimist 27 .5mcg/[place] Suspension 2 sprays each nostril every night 27.300ml J30.1 Eamon Samaniego M.D. 02/20/2021 - 05/14/2021 Medications Administered in Office Medication SIG Qnty Indications Ordering Provider Date Allergy Injection 2 Or More Injection Eamon Samaniego M.D. 05/15/2021 Allergy Injection 2 Or More Injection Eamon Samaniego M.D. 05/07/2021 Allergy Injection 2 Or More Injection Eamon Samaniego M.D. 04/30/2021 Allergy Injection 2 Or More Injection Eamon Samaniego M.D. 04/23/2021 Allergy Injection 2 Or More Injection Eamon Samaniego M.D. 04/16/2021 Allergy Injection 2 Or More Injection Eamon Samaniego M.D. 04/02/2021 Allergy Injection 2 Or More Injection Eamon Samaniego M.D. 03/25/2021 Allergy Injection 2 Or More Injection Eamon Samaniego M.D. 03/18/2021 Allergy Injection 2 Or More Injection Eamon Samaniego M.D. 03/13/2021 Allergy Injection 2 Or More Injection Eamon Samaniego M.D. 03/05/2021 Allergy Injection 2 Or More Injection Eamon Samaniego M.D. 02/27/2021 Allergy Injection 2 Or More Injection Eamon Samaniego M.D. 02/20/2021 Allergy Injection 2 Or More Injection Eamon Samaniego M.D. 02/11/2021 Allergy Injection 2 Or More Injection Eamon Samaniego M.D. 01/22/2021 Allergy Injection 2 Or More Injection Eamon Samaniego M.D. 01/15/2021 Allergy Injection 2 Or More Injection Eamon Samaniego M.D. 01/09/2021 Allergy Injection 2 Or More Injection Eamon Samaniego M.D. 01/02/2021 Allergy Injection 2 Or More Injection Eamon Samaniego M.D. 12/25/2020 Allergy Injection 2 Or More Injection Eamon Samaniego M.D. 12/19/2020 Allergy Injection 2 Or More Injection Eamon Samaniego M.D. 12/10/2020 Allergy Injection 2 Or More Injection Eamon Samaniego M.D. 12/04/2020 Allergy Injection 2 Or More Injection Eamon Samaniego M.D. 11/27/2020 Allergy Injection 2 Or More Injection Eamon Samaniego M.D. 11/21/2020 Allergy Injection 2 Or More Injection Eamon Samaniego M.D. 11/12/2020 Allergy Injection 2 Or More Injection Eamon Samaniego M.D. 10/31/2020 Immunizations Description No Information Available [...] Information Available Procedures Date Code Description Status 05/15/2021 63486 Office/Outpatient Established Mo d MDM 30-39 Min Completed 05/15/2021 90431 Allergy Injection 2 Or More Comp leted 05/15/2021 04833 Office/Outpatient Established Hi gh MDM 40-54 Min Completed 05/07/2021 49441 Allergy Injection 2 Or More Comp leted 04/30/2021 92909 Allergy Injection 2 Or More Comp leted 04/23/2021 96680 Allergy Injection 2 Or More Comp leted 04/16/2021 24187 Allergy Injection 2 Or More Comp leted 04/02/2021 49670 Allergy Injection 2 Or More Comp leted 03/25/2021 14408 Allergy Injection 2 Or More Comp leted 03/18/2021 92736 Allergy Injection 2 Or More Comp leted 03/13/2021 40320 Allergy Injection 2 Or More Comp leted 03/05/2021 96947 Allergy Injection 2 Or More Comp leted 02/27/2021 14853 Allergy Injection 2 Or More Comp leted 02/20/2021 82997 Office/Outpatient Established Lo w MDM 20-29 Min Completed 02/20/2021 42979 Allergy Injection 2 Or More Comp leted 02/11/2021 55000 Allergy Injection 2 Or More Comp leted 01/22/2021 86776 Allergy Injection 2 Or More Comp leted 01/15/2021 20258 Allergy Injection 2 Or More Comp leted 01/09/2021 04971 Allergy Injection 2 Or More Comp leted 01/02/2021 72066 Allergy Injection 2 Or More Comp leted 12/25/2020 92287 Allergy Injection 2 Or More Comp leted 12/19/2020 34045 Allergy Injection 2 Or More Comp leted 12/10/2020 77936 Allergy Injection 2 Or More Comp leted 12/04/2020 03756 Allergy Injection 2 Or More Comp leted 11/27/2020 95081 Allergy Injection 2 Or More Comp leted 11/21/2020 54580 Allergy Injection 2 Or More Comp leted Medical Devices Description No Information Available Encounters Type Date Location Provider Dx Diagnosis Office Visit 05/15/2021 1:30p Main Office Eamon Samaniego M.D. R68.89 Other general symptoms and signs J30.1 Allergic rhinitis due to errol john J30.81 Allergic rhinitis due to ani mal (cat) (dog) hair and dander J30.89 Other allergic rhinitis R06.00 Dyspnea, unspecified J45.40 Moderate persistent asthma, uncomplicated K21.9 Gastro-esophageal reflux dis ease without esophagitis Assessments Date Code Description Provider 05/15/2021 R68.89 Multiple somatic complaints Nay Samaniego M.D. 05/15/2021 J30.1 Allergic rhinitis due to pollen Eamon Samaniego M.D. 05/15/2021 J30.81 Allergic rhinitis due to animal (cat) (dog) hair and dander Eamon Samaniego M.D. 05/15/2021 J30.89 Other allergic rhinitis Eamon Samaniego M.D. 05/15/2021 J30.1 Allergic rhinitis due to pollen Eamon Samaniego M.D. 05/15/2021 R06.00 Dyspnea, unspecified Eamon arguelles M.D. 05/15/2021 J45.40 Moderate persistent asthma, unco mplicated Eamon Samaniego M.D. 05/15/2021 K21.9 Gastro-esophageal reflux disease without esophagitis Eamon Samaniego M.D. 05/15/2021 J30.81 Allergic rhinitis due to animal (cat) (dog) hair and dander Eamon Samaniego M.D. 05/15/2021 J30.89 Other allergic rhinitis Eamon Samaniego M.D. Plan of Treatment Future Appointment(s):* 11/13/2021 11:00 am - Eamon Samaniego M.D. at Main Office * 05/22/2021 10:10 am - Allergy Injection at Main Office 05/15/2021 - Eamon Samaniego M.D.* R68.89 Multiple somatic complaints* Recommendations:* Should [...]
--- OUTSIDE RECORDS SUMMARY | 2021-07-11 10:29 | CCD | Continuity of Care Document ---
Author Author Des HARRIS MD Organization Unknown Address [address] [place] [address] Phone [phone] Care Team Providers Care Fine Grade Operator Name Role Phone Mena Barnett MD AUTM [phone] Cesar Hubbard DO AUTM [phone] Problems Description No Information Available Social History Type Date Description Comments Sex Unknown Allergies, Adverse Reactions, Alerts Active Allergies Criticality Reaction | Severity Comments Date Codeine Unable to assess criticality 04/29/2021 Prednisone Unable to assess criticality 04/29/2021 Medications Active Medications SIG Qnty Indications Ordering Provide r Date Xolair 150mg Solution Rec Unknown History Medications No Active Medications Unknown - 04/29/2021 Immunizations Description No Information Available Vital Signs Date Vital Result Comment 05/15/2020 8:54am Body Temperature 97.2 F Height 69.5 inches 5'9.50" Weight 169.00 lb BMI (Body Mass Index) 24.6 kg/m2 04/18/2018 9:09am Body Temperature 97.6 F Height 69 inches 5'9" Weight 157.50 lb BMI (Body Mass Index) 23.3 kg/m2 Results Description No Information Available Procedures Date Code Description Status 04/28/2021 75834 Office/Outpatient Established Lo w MDM 20-29 Min Completed Medical Devices Description No Information Available Encounters Type Date Location Provider Dx Diagnosis Office Visit 04/28/2021 2:15p [place] Pa Harris MD M54.2 Cervicalgia R68.84 Jaw pain R76.8 Other specified abnormal imm unological findings in serum Assessments Date Code Description Provider 04/28/2021 M54.2 Cervicalgia Pa Harris MD 04/28/2021 R68.84 Jaw pain Pa Harris MD 04/28/2021 R76.8 Other specified abnormal immunol ogical findings in serum Pa Harris MD Plan of Treatment 04/28/2021 - Pa Harris MD* M54.2 Cervicalgia * R68.84 Jaw pain * R76.8 Other specified abnormal immunological findings in serum* Follow up:* prn Functional Status Description No Information Available Mental Status Description No Information Available Referrals Description No Information Available
--- OUTSIDE RECORDS SUMMARY | 2021-07-11 10:29 | CCD | Continuity of Care Document ---
Author Author Des Wallace Unknown Address [address], [address], [place] [address] Phone [phone] Care Team Providers Care Stripper Machine Operator Name Role Phone Mena Barnett [...] Day Unknown History Medications Flonase Sensimist 27 .5mcg/[place] Suspension 2 sprays each nostril every night [...] Available Procedures Date Code Description Status 05/15/2021 57960 Allergy Injection 2 Or More Comp leted 05/15/2021 12080 Office/Outpatient Established Mo d MDM 30-39 Min Completed 05/07/2021 54970 Allergy Injection 2 Or More Comp leted 04/30/2021 15298 Allergy Injection 2 Or More Comp leted 04/23/2021 01812 Allergy Injection 2 Or More Comp leted 04/16/2021 59185 Allergy Injection 2 Or More Comp leted 04/02/2021 27604 Allergy Injection 2 Or More Comp leted 03/25/2021 90679 Allergy Injection 2 Or More Comp leted 03/18/2021 12333 Allergy Injection 2 Or More Comp leted 03/13/2021 19614 Allergy Injection 2 Or More Comp leted 03/05/2021 27511 Allergy Injection 2 Or More Comp leted 02/27/2021 67852 Allergy Injection 2 Or More Comp leted 02/20/2021 97935 Office/Outpatient Established Lo w MDM 20-29 Min Completed 02/20/2021 28208 Allergy Injection 2 Or More Comp leted 02/11/2021 59971 Allergy Injection 2 Or More Comp leted 01/22/2021 78708 Allergy Injection 2 Or More Comp leted 01/15/2021 28079 Allergy Injection 2 Or More Comp leted 01/09/2021 49761 Allergy Injection 2 Or More Comp leted 01/02/2021 25723 Allergy Injection 2 Or More Comp leted 12/25/2020 99826 Allergy Injection 2 Or More Comp leted 12/19/2020 20776 Allergy Injection 2 Or More Comp leted 12/10/2020 06251 Allergy Injection 2 Or More Comp leted 12/04/2020 02745 Allergy Injection 2 Or More Comp leted 11/27/2020 78272 Allergy Injection 2 Or More Comp leted 11/21/2020 38158 Allergy Injection 2 Or More Comp leted Medical Devices Description No Information Available Encounters Description No Information Available Assessments Date Code Description Provider 05/15/2021 R68.89 Multiple somatic complaints Nay triston Verduzco M.D. 05/15/2021 J30.1 Allergic rhinitis due to pollen Eamon Verduzco M.D. 05/15/2021 J30.81 Allergic rhinitis due to animal (cat) (dog) hair and dander Eamon Verduzco M.D. 05/15/2021 J30.89 Other allergic rhinitis Eamon Verduzco M.D. 05/15/2021 J30.1 Allergic rhinitis due to pollen Eamon Verduzco M.D. 05/15/2021 R06.00 Dyspnea, unspecified Eamon arguelles M.D. 05/15/2021 J45.40 Moderate persistent asthma, unco mplicated Eamon Verduzco M.D. 05/15/2021 K21.9 Gastro-esophageal reflux disease without esophagitis Eamon Verduzco M.D. 05/15/2021 J30.81 Allergic rhinitis due to animal (cat) (dog) hair and dander Eamon Verduzco M.D. 05/15/2021 J30.89 Other allergic rhinitis Eamon Verduzco M.D. Plan of Treatment Future Appointment(s):* 11/13/2021 11:00 am - Eamon Verduzco M.D. at Main Office * 05/22/2021 10:10 am - Allergy Injection at Main Office 05/15/2021 - Eamon Verduzco [...]
--- OUTSIDE RECORDS SUMMARY | 2021-07-11 10:29 | CCD | Continuity of Care Document ---
Author Author Des PICKETT Organization Unknown Address [address] [place] [address] Phone [phone] Care Team Providers Care Firer Retort Name Role Phone Cesar Hubbard D.O. AUTM [phone] Problems Active Problems Provider Date Chronic intractable migraine without aura Kimberly Arteaga M.D. Onset: 09/14/2018 Chronic tension-type headache Kimberly Arteaga M.D. Onset: Neck pain Kimberly Arteaga M.D. Onset: 09/14/2018 Spondylolysis of cervical spine Kimberly Arteaga M.D. Onset: 0 09/14/2018 Dizziness and giddiness Kimberly Arteaga M.D. Onset: 9 Visual disturbance Kimberly Arteaga M.D. Onset: 09/14/2018 Cerebral arterial aneurysm Kimberly Arteaga M.D. Onset: 2018 Atypical facial pain Kimberly Arteaga M.D. Onset: 06/06/2019 Myofascial pain Kimberly Arteaga M.D. Onset: 12/13/2020 Carpal tunnel syndrome of left wrist Kimberly Arteaga M.D. Ons et: 01/21/2021 Lateral epicondylitis Kimberly Arteaga M.D. Onset: 01/21/2021 Jaw pain Kimberly Arteaga M.D. Onset: 04/03/2021 Social History Type Date Description Comments Sex Unknown Tobacco Use Start: Unknown Patient has never smoked Allergies and adverse reactions Active Allergies Criticality Reaction | Severity Comments Date Codeine Unable to assess criticality 09/14/2018 Prednisone Unable to assess criticality 09/14/2018 Medications Description No Active Medications Immunizations Description No Information Available Vital Signs Date Vital Result Comment 09/14/2018 12:22pm BP Systolic 120 mmHg BP Diastolic 80 mmHg Heart Rate 70 /min Respiratory Rate 14 /min Height 69 inches 5'9" Weight 165.00 lb BMI (Body Mass Index) 24.4 kg/m2 [place] Body Weight 160 lb Results Test Acquired Date Facility Test Result H/L Range Note Laboratory test finding 12/13/2020 Merged with [facility] CPK Creatine Phosphokinase 152 U/L Normal 39-308 Thyroid Stimulating Hormone 1.890 uIU/ML Normal 0.358-3.740 Total 25(Oh) Vitamin D 37.0 NG/ML Normal 30.0-100.0 Lyme Disease SCRN With Confirm 12/13/2020 Merged with [facility] Lyme Disease IgG/IgM Antibodie <0.91 ISR Normal 0.00-0.90 1 Lyme Disease IgM Ab Quantitati <0.80 index Normal 0.00-0.79 2 1 Negative <0.91 Equivocal 0.91 - 1.09 Positive >1.09 2 Negative <0.80 Equivocal 0.80 - 1.19 Positive >1.19 . IgM levels may peak at 3-6 weeks post infection, then gradually decline. Performed at: RN - [facility] [address] [id number] Catering Chef: Barbara Kraus MD, Phone: [phone] Procedures Date Code Description Status 05/07/2021 33250 Magnetic Resonance W/O Contrast Materials Completed 05/07/2021 12433 Magnetic Resonance W/O Contrast Materials Completed 05/07/2021 70405 Magnetic Resonance W/O Contrast Materials Completed 04/03/2021 43419 Office/Outpatient Established Hi gh MDM 40-54 Min Completed 02/01/2021 60568 Magnetic Resonance Angiogtaphy H ead W/O Contrast Material(S) Completed 02/01/2021 74985 Magnetic Resonance Angiogtaphy H ead W/O Contrast Material(S) Completed 02/01/2021 69696 Magnetic Resonance Angiogtaphy H ead W/O Contrast Material(S) Completed 01/21/2021 64022 Office/Outpatient Established Mo d MDM 30-39 Min Completed 12/18/2020 58620 Injection For Nerve Block, Sphen opalatine Ganglion Completed 12/16/2020 49245 Nerve Conduction 13+ Studies Com pleted 12/16/2020 35279 Needle Electromyography Complete , Five Or More Muscles Studied Completed 12/16/2020 23338 Needle Electromyography Complete , Five Or More Muscles Studied Completed 12/13/2020 89994 Office/Outpatient Established Mo d MDM 30-39 Min Completed Medical Devices Description No Information Available Encounters Type Date Location Provider Dx Diagnosis Office Visit 04/03/2021 12:45p Main office - [place] Josi Solorzano G43.719 Chronic migraine w/o aura, intractable, w/o stat migr G44.221 Chronic tension-type headach e, intractable I67.1 Cerebral aneurysm, nonruptur ed G50.1 Atypical facial pain G56.02 Carpal tunnel syndrome, left upper limb R42 Dizziness and giddiness H53.8 Other visual disturbances M54.2 Cervicalgia M77.12 Lateral epicondylitis, left elbow R68.84 Jaw pain Office Visit 01/21/2021 11:30a [place] [facility] [place] G50.1 Atypical facial pain G56.02 Carpal tunnel syndrome, left upper limb I67.1 Cerebral aneurysm, nonruptur ed R42 Dizziness and giddiness H53.8 Other visual disturbances M54.2 Cervicalgia G44.221 Chronic tension-type headach e, intractable M77.12 Lateral epicondylitis, left elbow Office Visit 12/13/2020 12:00p Main office - [place] Josi Solorzano I67.1 Cerebral aneurysm, nonruptured R42 Dizziness and giddiness H53.8 Other visual disturbances M54.2 Cervicalgia G50.1 Atypical facial pain G44.221 Chronic tension-type headach e, intractable M43.02 Spondylolysis, cervical steven on M79.18 Myalgia, other site R25.2 Cramp and spasm Assessments Date Code Description Provider 05/07/2021 R68.84 Jaw pain Adolfo Allen MD 05/07/2021 R68.84 Jaw pain Tami Jenkins 05/07/2021 R68.84 Jaw pain MRI 05/07/2021 G50.1 Atypical facial pain Adolfo Allen MD 05/07/2021 G50.1 Atypical facial pain Rozina Lopez M.D. 05/07/2021 G50.1 Atypical facial pain MRI 04/03/2021 G43.719 Chronic migraine wit hout aura, intractable, without status migrainosus Kimberly Arteaga M.D. 04/03/2021 G44.221 Chronic tension-type headache, i ntractable Kimberly Arteaga M.D. 04/03/2021 I67.1 Cerebral aneurysm, nonruptured M esme Arteaga M.D. 04/03/2021 G50.1 Atypical facial pain Kimberly Arteaga M.D. 04/03/2021 G56.02 Carpal tunnel syndrome, left upp er limb Kimberly Arteaga M.D. 04/03/2021 R42 Dizziness and giddiness Kimberly sam M.D. 04/03/2021 H53.8 Other visual disturbances Kimberly Arteaga M.D. 04/03/2021 M54.2 Cervicalgia Kimberly Arteaga M.D. 04/03/2021 M77.12 Lateral epicondylitis, left elbo w Kimberly Arteaga M.D. 04/03/2021 R68.84 Jaw pain Kimberly Arteaga M.D. 02/01/2021 I67.1 Cerebral aneurysm, nonruptured S kwaku Brown MD 02/01/2021 I67.1 Cerebral aneurysm, nonruptured A karen Lopez M.D. 02/01/2021 I67.1 Cerebral aneurysm, nonruptured M RI 01/21/2021 G50.1 Atypical facial pain Kimberly Arteaga M.D. 01/21/2021 G56.02 Carpal tunnel syndrome, left upp er limb Kimberly Arteaga M.D. 01/21/2021 I67.1 Cerebral aneurysm, nonruptured M esme Arteaga M.D. 01/21/2021 R42 Dizziness and giddiness Kimberly sam M.D. 01/21/2021 H53.8 Other visual disturbances Kimberly Arteaga M.D. 01/21/2021 M54.2 Cervicalgia Kimberly Arteaga M.D. 01/21/2021 G44.221 Chronic tension-type headache, i ntractable Kimberly Arteaga M.D. 01/21/2021 M77.12 Lateral epicondylitis, left elbo w Kimberly Arteaga M.D. 12/18/2020 G50.1 Atypical facial pain Kimberly Arteaga M.D. 12/18/2020 G43.701 Chronic migraine wit hout aura, not intractable, with status migrainosus Kimberly Arteaga M.D. 12/16/2020 M54.89 Other dorsalgia Kimberly Arteaga M.D. 12/16/2020 M62.838 Other muscle spasm Adair Solorzano 12/16/2020 M60.88 Other myositis, other site Shanique Arteaga M.D. 12/16/2020 G56.02 Carpal tunnel syndrome, left upp er limb Kimberly Arteaga M.D. 12/13/2020 I67.1 Cerebral aneurysm, nonruptured Adair Arteaga M.D. 12/13/2020 R42 Dizziness and giddiness Kimberly sam M.D. 12/13/2020 H53.8 Other visual disturbances Kimberly Arteaga M.D. 12/13/2020 M54.2 Cervicalgia Kimberly Arteaga M.D. 12/13/2020 G50.1 Atypical facial pain Kimberly Arteaga M.D. 12/13/2020 G44.221 Chronic tension-type headache, i ntractable Kimberly Arteaga M.D. 12/13/2020 M43.02 Spondylolysis, cervical region Adair Arteaga M.D. 12/13/2020 M79.18 Myalgia, other site Kimberly Arteaga M.D. 12/13/2020 R25.2 Cramp and spasm Kimberly Arteaga M.D. Plan of Treatment Future Appointment(s):* 10/30/2021 2:45 pm - Kimberly Arteaga M.D. at Main office - [place] Functional Status Description No Information Available Mental Status Description No Information Available Referrals Refer to Dr Reason for Referral Status Appt Date Kimberly Arteaga M.D. Created [facility] [address] [place] [address] [phone] Kimberly Arteaga M.D. Created [facility] [address] [place] [address] [phone]
--- OUTSIDE RECORDS SUMMARY | 2021-07-11 10:29 | CCD | Continuity of Care Document ---
Author Author Des SAMANIEGO Organization Unknown Address [address], [place] [address] Phone [phone] Care Team Providers Care Brick Kiln Worker Name Role Phone Mena Barnett VIKASAdair Unavailable [...] Day Unknown History Medications Flonase Sensimist 27 .5mcg/[place] Suspension 2 sprays each nostril every night [...] Available Procedures Date Code Description Status 05/15/2021 51294 Allergy Injection 2 Or More Comp leted 05/15/2021 96100 Office/Outpatient Established Mo d MDM 30-39 Min Completed 05/07/2021 35517 Allergy Injection 2 Or More Comp leted 04/30/2021 80516 Allergy Injection 2 Or More Comp leted 04/23/2021 43563 Allergy Injection 2 Or More Comp leted 04/16/2021 80382 Allergy Injection 2 Or More Comp leted 04/02/2021 57253 Allergy Injection 2 Or More Comp leted 03/25/2021 70207 Allergy Injection 2 Or More Comp leted 03/18/2021 10207 Allergy Injection 2 Or More Comp leted 03/13/2021 63837 Allergy Injection 2 Or More Comp leted 03/05/2021 14300 Allergy Injection 2 Or More Comp leted 02/27/2021 78480 Allergy Injection 2 Or More Comp leted 02/20/2021 98513 Office/Outpatient Established Lo w MDM 20-29 Min Completed 02/20/2021 89285 Allergy Injection 2 Or More Comp leted 02/11/2021 44622 Allergy Injection 2 Or More Comp leted 01/22/2021 36766 Allergy Injection 2 Or More Comp leted 01/15/2021 74697 Allergy Injection 2 Or More Comp leted 01/09/2021 23567 Allergy Injection 2 Or More Comp leted 01/02/2021 05217 Allergy Injection 2 Or More Comp leted 12/25/2020 68581 Allergy Injection 2 Or More Comp leted 12/19/2020 42293 Allergy Injection 2 Or More Comp leted 12/10/2020 21155 Allergy Injection 2 Or More Comp leted 12/04/2020 95213 Allergy Injection 2 Or More Comp leted 11/27/2020 07664 Allergy Injection 2 Or More Comp leted 11/21/2020 85097 Allergy Injection 2 Or More Comp leted Medical Devices Description No Information Available Encounters Description No Information Available Assessments Date Code Description Provider 05/15/2021 R68.89 Multiple somatic complaints Nay triston Samaniego M.D. 05/15/2021 J30.1 Allergic rhinitis due [...] to animal (cat) (dog) hair and dander Adair Reid.D. 05/15/2021 J30.89 Other allergic rhinitis Eamon Samaniego [...]
--- OUTSIDE RECORDS SUMMARY | 2021-07-11 10:29 | CCD | Continuity of Care Document ---
Author Author Des VERDUZCO Organization Unknown Address [address], [address], [place] [address] Phone [phone] Care Team Providers Care Hemp Fiber Taker Off Name Role Phone Mena Barnett Unavailable Problems [...] Ordering Provide r Date Flonase Sensimist 27 .5mcg/[place] Suspension 2 sprays each nostril every night [...] M.D. 03/13/2021 Allergy Injection 2 Or More Don Verduzco M.D. 03/05/2021 Allergy Injection 2 Or More Injection Eamon Verduzco M.D. 02/27/2021 Allergy Injection 2 Or More Injection Eamon Verduzco M.D. 02/20/2021 Allergy Injection 2 Or More Injection Eamon Verduzco M.D. 02/11/2021 Allergy Injection 2 Or More Injection Eamon Verduzco M.D. 01/22/2021 Allergy Injection 2 Or More Injection Eamon Verduzco M.D. 01/15/2021 Allergy Injection 2 Or More Don Verduzco M.D. 01/09/2021 Allergy Injection 2 Or [...] Information Available Procedures Date Code Description Status 04/16/2021 94796 Allergy Injection 2 Or More Comp leted 04/02/2021 66595 Allergy Injection 2 Or More Comp leted 03/25/2021 66631 Allergy Injection 2 Or More Comp leted 03/18/2021 79706 Allergy Injection 2 Or More Comp leted 03/13/2021 17147 Allergy Injection 2 Or More Comp leted 03/05/2021 80298 Allergy Injection 2 Or More Comp leted 02/27/2021 52065 Allergy Injection 2 Or More Comp leted 02/20/2021 88328 Office/Outpatient Established Lo w MDM 20-29 Min Completed 02/20/2021 47634 Allergy Injection 2 Or More Comp leted 02/11/2021 55533 Allergy Injection 2 Or More Comp leted 01/22/2021 00289 Allergy Injection 2 Or More Comp leted 01/15/2021 86442 Allergy Injection 2 Or More Comp leted 01/09/2021 91718 Allergy Injection 2 Or More Comp leted 01/02/2021 81730 Allergy Injection 2 Or More Comp leted 12/25/2020 92362 Allergy Injection 2 Or More Comp leted 12/19/2020 56335 Allergy Injection 2 Or More Comp leted 12/10/2020 33717 Allergy Injection 2 Or More Comp leted 12/04/2020 83120 Allergy Injection 2 Or More Comp leted 11/27/2020 05392 Allergy Injection 2 Or More Comp leted 11/21/2020 90921 Allergy Injection 2 Or More Comp leted 11/12/2020 02681 Allergy Injection 2 Or More Comp leted 10/31/2020 44255 Allergy Injection 2 Or More Comp leted 10/18/2020 77565 Allergy Antigens Single Or Multi ple Completed Medical Devices Description No Information Available Encounters Description No Information Available Assessments Date Code Description Provider 04/16/2021 J30.1 Allergic rhinitis due to pollen Eamon Verduzco M.D. 04/16/2021 J30.81 Allergic rhinitis due to animal (cat) (dog) hair and dander Eamon Verduzco M.D. 04/16/2021 J30.89 Other allergic rhinitis Eamon Verduzco M.D. Plan of Treatment Future Appointment(s):* 07/21/2022 10:00 am - Eamon Verduzco M.D. at Main Office 02/20/2021 - Eamon Verduzco M.D.* J30.1 Allergic rhinitis due to pollen* New Medication:* Flonase Sensimist 27.5 mcg/[place] - 2 sprays each nostril every night [...]
--- OUTSIDE RECORDS SUMMARY | 2021-07-11 10:29 | CCD | Continuity of Care Document ---
Author Author Des VERDUZCO Organization Unknown Address [address], [address], [place] [address] Phone [phone] Care Team Providers Care Cattle Sticker Name Role Phone Mena Barnett VIKASAdair Unavailable [...] Day Unknown History Medications Flonase Sensimist 27 .5mcg/[place] Suspension 2 sprays each nostril every night [...] Available Procedures Date Code Description Status 05/22/2021 95405 Allergy Injection 2 Or More Comp leted 05/15/2021 66590 Office/Outpatient Established Hi gh MDM 40-54 Min Completed 05/15/2021 32430 Office/Outpatient Established Mo d MDM 30-39 Min Completed 05/15/2021 75199 Allergy Injection 2 Or More Comp leted 05/07/2021 88849 Allergy Injection 2 Or More Comp leted 04/30/2021 19730 Allergy Injection 2 Or More Comp leted 04/23/2021 12421 Allergy Injection 2 Or More Comp leted 04/16/2021 46156 Allergy Injection 2 Or More Comp leted 04/02/2021 05607 Allergy Injection 2 Or More Comp leted 03/25/2021 72762 Allergy Injection 2 Or More Comp leted 03/18/2021 41958 Allergy Injection 2 Or More Comp leted 03/13/2021 08193 Allergy Injection 2 Or More Comp leted 03/05/2021 27587 Allergy Injection 2 Or More Comp leted 02/27/2021 20979 Allergy Injection 2 Or More Comp leted 02/20/2021 66879 Office/Outpatient Established Lo w MDM 20-29 Min Completed 02/20/2021 08921 Allergy Injection 2 Or More Comp leted 02/11/2021 14061 Allergy Injection 2 Or More Comp leted 01/22/2021 72391 Allergy Injection 2 Or More Comp leted 01/15/2021 30927 Allergy Injection 2 Or More Comp leted 01/09/2021 45926 Allergy Injection 2 Or More Comp leted 01/02/2021 62222 Allergy Injection 2 Or More Comp leted 12/25/2020 41331 Allergy Injection 2 Or More Comp leted 12/19/2020 19880 Allergy Injection 2 Or More Comp leted 12/10/2020 93924 Allergy Injection 2 Or More Comp leted 12/04/2020 74343 Allergy Injection 2 Or More Comp leted 11/27/2020 87630 Allergy Injection 2 Or More Comp leted 11/21/2020 93261 Allergy Injection 2 Or More Comp leted [...] without esophagitis Assessments Date Code Description Provider 05/22/2021 J30.1 Allergic rhinitis due to pollen Eamon Verduzco M.D. 05/22/2021 J30.81 Allergic rhinitis due to animal (cat) (dog) hair and dander Eamon Verduzco M.D. 05/22/2021 J30.89 Other allergic rhinitis Eamon Verduzco M.D. Plan of Treatment Future Appointment(s):* 05/28/2021 10:00 am - Allergy Injection at Main [...]
--- OUTSIDE RECORDS SUMMARY | 2021-07-11 10:29 | CCD | Continuity of Care Document ---
Author Author Des PICKETT Organization Unknown Address [address] [place] [address] Phone [phone] Care Team Providers Care Back Hoe Operator Name Role Phone Cesar Hubbard D.O. AUTM [phone] Problems Active Problems Provider Date Chronic intractable [...] lb BMI (Body Mass Index) 24.4 kg/m2 [place] Body Weight 160 lb Results Test Acquired Date Facility Test Result H/L Range Note Laboratory test finding 12/13/2020 [facility] CPK Creatine Phosphokinase 152 U/L Normal 39-308 Thyroid Stimulating Hormone 1.890 uIU/ML Normal 0.358-3.740 Total 25(Oh) Vitamin D 37.0 NG/ML Normal 30.0-100.0 Lyme Disease SCRN With Confirm 12/13/2020 [facility] Lyme Disease IgG/IgM Antibodie <0.91 ISR Normal 0.00-0.90 1 Lyme Disease IgM Ab Quantitati <0.80 index Normal 0.00-0.79 2 1 Negative <0.91 Equivocal 0.91 - 1.09 Positive >1.09 2 Negative <0.80 Equivocal 0.80 - 1.19 Positive >1.19 . IgM levels may peak at 3-6 weeks post infection, then gradually decline. Performed at: RN - [facility] [address] [id number] District Captain: Barbara Kraus MD, Phone: [phone] Procedures Date Code Description Status 04/03/2021 13317 Office/Outpatient Established Hi gh MDM 40-54 Min Completed 02/01/2021 27893 Magnetic Resonance Angiogtaphy H ead W/O Contrast Material(S) Completed 02/01/2021 05623 Magnetic Resonance Angiogtaphy H ead W/O Contrast Material(S) Completed 02/01/2021 22101 Magnetic Resonance Angiogtaphy H ead W/O Contrast Material(S) Completed 01/21/2021 68761 Office/Outpatient Established Mo d MDM 30-39 Min Completed 12/18/2020 31464 Injection For Nerve Block, Sphen opalatine Ganglion Completed 12/16/2020 76142 Nerve Conduction 13+ Studies Com pleted 12/16/2020 14723 Needle Electromyography Complete , Five Or More Muscles Studied Completed 12/16/2020 23293 Needle Electromyography Complete , Five Or More Muscles Studied Completed 12/13/2020 28101 Office/Outpatient Established Mo d MDM 30-39 Min Completed Medical Devices Description No Information Available Encounters Type Date Location Provider Dx Diagnosis Office Visit 04/03/2021 [place] G43.719 Chronic migraine w/o aura, intractable, w/o stat migr G44.221 Chronic tension-type headach e, intractable I67.1 Cerebral aneurysm, nonruptur ed G50.1 Atypical facial pain G56.02 Carpal tunnel syndrome, left upper limb R42 Dizziness and giddiness H53.8 Other visual disturbances M54.2 Cervicalgia M77.12 Lateral epicondylitis, left elbow R68.84 Jaw pain Office Visit 01/21/2021 11:30a Main office - [place] Josi Solorzano G50.1 Atypical facial pain G56.02 Carpal tunnel syndrome, left upper limb I67.1 Cerebral aneurysm, nonruptur ed R42 Dizziness and giddiness H53.8 Other visual disturbances M54.2 Cervicalgia G44.221 Chronic tension-type headach e, intractable M77.12 Lateral epicondylitis, left elbow Office Visit 12/13/2020 12:00p [place] I67.1 Cerebral aneurysm, nonruptured R42 Dizziness and giddiness H53.8 Other visual disturbances M54.2 Cervicalgia G50.1 Atypical facial pain G44.221 Chronic tension-type headach e, intractable M43.02 Spondylolysis, cervical steven on M79.18 Myalgia, other site R25.2 Cramp and spasm Assessments Date Code Description Provider 04/03/2021 G43.719 Chronic migraine wit hout aura, [...] [place] 01/21/2021 G50.1 Atypical facial pain Kimberly Atreaga M.D. 01/21/2021 G56.02 Carpal tunnel syndrome, left [...] Kimberly Arteaga M.D. at Main office - [place] Functional Status Description No Information Available Mental Status Description No Information Available Referrals Refer to Dr Reason for Referral Status Appt Date Kimberly Arteaga M.D. Created [facility] [address] [place] [address] [phone]
--- OUTSIDE RECORDS SUMMARY | 2021-07-11 10:29 | CCD | Continuity of Care Document ---
Author Author Des BALDERRAMA M.D. Organization Unknown Address [address] [place] [address] Phone [phone] Care Team Providers Care Log Handling Equipment Operator Name Role Phone Mena Barnett M.D. AUTM [phone] Problems Active Problems Provider Date Gastroesophageal reflux [...] Available Vital Signs Date Vital Result Comment 05/01/2021 11:40am Height 69 inches 5'9" Weight 169.00 lb BP Systolic 116 mmHg BP Diastolic 68 mmHg Heart Rate 60 /min BMI (Body Mass Index) 25.0 kg/m2 Weight 76.658 kg Body Temperature 97.3 F 09/24/2020 1:11pm Height 69 inches 5'9" Weight 172.00 lb BP Systolic 96 mmHg BP Diastolic 59 mmHg Heart Rate 59 /min BMI (Body Mass Index) 25.4 kg/m2 Weight 78.019 kg Body Temperature 96.3 F Results Description No Information Available Procedures Date Code Description Status 05/01/2021 54100 Office/Outpatient Established Mo d MDM 30-39 Min Completed Medical Devices Description No Information Available Encounters Type Date Location Provider Dx Diagnosis Office Visit 05/01/2021 11:45a Main Office Glenn Balderrama M.D. R 12 Heartburn K58.8 Other irritable bowel syndro me Assessments Date Code Description Provider 05/01/2021 R12 Heartburn Glenn nair M.D. 05/01/2021 K58.8 Other irritable bowel syndrome G uche Balderrama M.D. Plan of Treatment Future Appointment(s):* 05/22/2021 12:00 pm - Glenn Balderrama M.D. at Main Office 05/01/2021 - Glenn Balderrama M.D.* R12 Heartburn* Comments:* 55 yo wm who presents for a h/o heartburn. He has been scoped by [facility] in [place]. No c/o abdominal pain, weight loss, change in bowel habits, or rectal bleeding. No family h/o colon cancer. No h/o chest pain, or sob.Plan:1. Pantoprazole 40 mgs po bid2. Carafate bid.3. Gaviscon qid. * K58.8 Other irritable bowel syndrome* Comments:* As above. Functional Status Description No Information Available Mental Status Description No Information Available Referrals Description No Information Available
--- OUTSIDE RECORDS SUMMARY | 2021-07-11 10:29 | CCD | Continuity of Care Document ---
Author Author Des VERDUZCO Organization Unknown Address [address], [address], [place] [address] Phone [phone] Care Team Providers Care Supervisor Plastic Sheets Name Role Phone Mena Barnett Unavailable Problems [...] Ordering Provide r Date Flonase Sensimist 27 .5mcg/[place] Suspension 2 sprays each nostril every night [...] M.D. 03/18/2021 Allergy Injection 2 Or More Don Verduzco M.D. 03/13/2021 Allergy Injection 2 Or More Injection Eamon Verduzco M.D. 03/05/2021 Allergy Injection 2 Or More Injection Eamon Verduzco M.D. 02/27/2021 Allergy Injection 2 Or More Injection Eamon Verduzco M.D. 02/20/2021 Allergy Injection 2 Or More Injection Eamon Verduzco M.D. 02/11/2021 Allergy Injection 2 Or More Injection Eamon Verduzco M.D. 01/22/2021 Allergy Injection 2 Or More Don Verduzco M.D. 01/15/2021 Allergy Injection 2 Or [...] Information Available Procedures Date Code Description Status 04/23/2021 43215 Allergy Injection 2 Or More Comp leted 04/16/2021 74298 Allergy Injection 2 Or More Comp leted 04/02/2021 41482 Allergy Injection 2 Or More Comp leted 03/25/2021 20750 Allergy Injection 2 Or More Comp leted 03/18/2021 52716 Allergy Injection 2 Or More Comp leted 03/13/2021 09489 Allergy Injection 2 Or More Comp leted 03/05/2021 32882 Allergy Injection 2 Or More Comp leted 02/27/2021 39075 Allergy Injection 2 Or More Comp leted 02/20/2021 98762 Office/Outpatient Established Lo w MDM 20-29 Min Completed 02/20/2021 13180 Allergy Injection 2 Or More Comp leted 02/11/2021 24037 Allergy Injection 2 Or More Comp leted 01/22/2021 36415 Allergy Injection 2 Or More Comp leted 01/15/2021 70999 Allergy Injection 2 Or More Comp leted 01/09/2021 51940 Allergy Injection 2 Or More Comp leted 01/02/2021 61667 Allergy Injection 2 Or More Comp leted 12/25/2020 15386 Allergy Injection 2 Or More Comp leted 12/19/2020 35134 Allergy Injection 2 Or More Comp leted 12/10/2020 00638 Allergy Injection 2 Or More Comp leted 12/04/2020 30899 Allergy Injection 2 Or More Comp leted 11/27/2020 02996 Allergy Injection 2 Or More Comp leted 11/21/2020 91155 Allergy Injection 2 Or More Comp leted 11/12/2020 74253 Allergy Injection 2 Or More Comp leted 10/31/2020 22362 Allergy Injection 2 Or More Comp leted Medical Devices Description No Information Available Encounters Description No Information Available Assessments Date Code Description Provider 04/23/2021 J30.1 Allergic rhinitis due to pollen Eamon Verduzco M.D. 04/23/2021 J30.81 Allergic rhinitis due to animal (cat) (dog) hair and dander Eamon Verduzco M.D. 04/23/2021 J30.89 Other allergic rhinitis Eamon Verduzco M.D. Plan of Treatment Future Appointment(s):* 07/21/2022 10:00 am - Eamon Verduzco M.D. at Main Office 02/20/2021 - Eamon Verduzco M.D.* J30.1 Allergic rhinitis due to pollen* New Medication:* Flonase Sensimist 27.5 mcg/[place] - 2 sprays each nostril every night [...]
--- OUTSIDE RECORDS SUMMARY | 2021-07-11 10:30 | CCD | Summary of Care ---
Author Author [facility] Organization [facility] Address Unknown Phone Unavailable Care Team Providers Care Dance Studio Manager Name Role Phone RoryimtiazkatherineCesar Marely DO PCP Reason for Visit * Reason Comments Procedure Encounter Details Care Team Description Date Type Department Brent Atkins MD [facility] [place] [address] Chronic migraine (Primary Dx) 03/28/2021 Procedure visit [facility] a [address], [address] [place] [address] Allergies Comments Active Allergy Reactions Severity Noted Date Codeine Nausea And 07/29/2018 Vomiting, Nausea Only bananas Other Hives 04/23/2020 Paroxetine Nausea Only 03/17/2021 Prednisone Nausea And 07/29/2018 Vomiting, Nausea Only documented as of this encounter (statuses as of 04/15/2021) Medications End Date Status Medication Sig Dispensed [...] 10 MG Oral Tablet TAKE ONE 0 /2 TABLET BY 1 MOUTH DAILY MAY INCREASE IN 2 WEEKS TO TWO TABLETS DAILY Active Albuterol Sulfate HFA 108 INHALE 1 TO 2 0 /3 (90 Base) MCG/ACT PUFFS BY 1 Inhalation [...] Tablet (PEPCID) mouth Two 1 Times Daily documented as of this encounter (statuses as of 04/15/2021) Active Problems Problem Noted Date Cerebral aneurysm, nonruptured 03/09/2019 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 Never 09/26/2019 How many drinks containing alcohol do you have on No t asked a typical day when you are drinking? How often do you have six or more drinks on one Not asked occasion? Sex Assigned at Date Recorded Not on file Date Recorded COVID-19 Exposure Response 03/27/2021 12:00 PM EDT In the last month, have you been in contact with No / Unsure someone who was confirmed or suspected to have Coronavirus / COVID-19? documented as of this encounter Last Filed Vital Signs Not on filedocumented in this encounter Progress Notes * Brent Atkins MD - 03/27/2021 2:20 PM EDT Neuro-Ophthalmology Procedure Note Pertinent History: Des Hillman is a 55 y.o. male with history of chronic hea daches, who came in for diagnostic testing as ordered by Dr. Gutierrez . Fundus photographs: undilated Optic discs: Margins: sharp Appearance: normal and crowded OU Edema: absent Peripapillary retina:Normal OD: Cup/Disc ratio 0.2 OS: Cup/Disc ratio 0.1 Vessels: Normal Macula: Normal OD, not visualized OS Periphery as best seen: Normal Assessment: Des Hillman has normal fundus appearance by photographs in the setting of ch ronic headache . Clinical correlation is advised. Plan: On a practical note, Des Yap Kady will return to Dr. Gutierrez for further care. If you have any questions, please do not hesitate to call our office. documented in this encounter Plan of Treatment Health Maintenance Due Date Last Done Comments Hepatitis C Screening (B. 1965 4463-9722) MMR Vaccines (1 of - 1965 Standard series) Varicella Vaccines (1 of 1965 2 - 2-dose childhood series) DTaP,Tdap,and Td Vaccines 1971 (1 - Tdap) HIV Screening 1977 Colon Cancer Screening 10 2014 yrs Influenza Vaccine 05/02/2021 Pneumococcal Vaccine: 65+ 2029 Years (1 of 1 - PPSV23) COVID-19 Vaccine Completed 10/11/2020, 09/20/2020 HIB Vaccines Aged Out No longer eligible [...] filedocumented in this encounter Visit Diagnoses Diagnosis Chronic migraine - Primary Chronic migraine without aura, without mention of intractable migraine without mention of status migrainosus documented in this encounter
--- OUTSIDE RECORDS SUMMARY | 2021-07-11 10:30 | CCD | Continuity of Care Document ---
Author Author Des Krishnamurthy Organization Unknown Address [address] [place] [address] Phone [phone] Care Team Providers Care Overnight Cashier Name Role Phone Yamini Almonte M.D. AUTM [phone] AUTM Unavailable Cesar Hubbard D.O. AUTM [phone] Problems Active Problems Provider Date Allergic rhinitis Srinath Winter MD Onset: 08/15/2018 Arthralgia of temporomandibular joint Srinath Winter MD On set: 08/15/2018 Headache Srinath Winter MD Onset: 08/15/2018 Difficulty breathing ROOPA Gray Onset: 08/30/2018 Cough ROOPA Gray Onset: 08/30/2018 Anxiety state Srinath Winter MD Onset: 10/03/2018 Dizziness and giddiness Srinath Winter MD Onset: 9 Gastroesophageal reflux disease Srinath Winter MD Onset: 0 10/24/2018 Social History Type Date Description Comments Sex Unknown Smokeless Tobacco Never Used Smokeless Tobacco ETOH Use 1-2 A Day Recreational Drug Use Denies Drug Use Tobacco Use Start: 08/02/04 End: 08/02/08 Patient is a forme r smoker 2-3 CIGARETTES PER DAY FOR 4 YEARS Smoking Status Reviewed: 02/11/21 Patient is a former smoker 2- 3 CIGARETTES PER DAY FOR 4 YEARS Allergies, Adverse Reactions, Alerts Active Allergies Criticality Reaction | Severity Comments Date Environmental Unable to assess criticality 05/31/2018 Codeine Unable to assess criticality 08/30/2018 Prednisone Unable to assess criticality 09/09/2018 Inactive Allergies NKDA Unable to assess criticality 05/31/2018 Medications Active Medications SIG Qnty Indications Ordering Provide r Date Xolair 150mg/ml Soln Prefill Syrin ge inject 1 syringe subcutaneously every 4 weeks 3ml Jessica Dey M.D. 04/15/2021 Aerochamber MV Misc 1 unit use with inhaler Jessica Ortega M.D. 09/06/2020 Multivitamin Adult Tablets 1 tab by mouth every day 30tabs Unknown Aspirin [address] 1 tab by mouth every day Unknown Pepcid 20mg Tablets 1 by mouth twice a day Unknown History Medications Asmanex HFA 100mcg/Act Aerosol 2 puff twice a day with spacer 13gm J45.40 Jessica Mcdonough M.D. - 01/30/2021 Asmanex HFA 100mcg/Act Aerosol 2 puff twice a day with spacer 13gm J45.40 Jessica Mcdonough M.D. - 12/02/2020 Epipen 2-Airstides 0.3mg/0 .3ML Solution Auto-Inject 1 unit as needed as directed 2Reina Lloyd M.D. 10/14/2020 - 01/30/2021 Medications Administered in Office Medication SIG Qnty Indications Ordering Provider Date Covid-19 vaccine, Unspecified Inj ection Unknown 10/11/2020 Covid-19 vaccine, Unspecified Inj ection Unknown 09/20/2020 Immunizations Description No Information Available Vital Signs Date Vital Result Comment 04/15/2021 9:27am BP Systolic 114 mmHg BP Diastolic 66 mmHg Heart Rate 97 /min O2 % BldC Oximetry 65 % 04/02/2021 11:35am BP Systolic 112 mmHg BP Diastolic 68 mmHg Heart Rate 56 /min O2 % BldC Oximetry 97 % Height 69 inches 5'9" Weight 167.00 lb BMI (Body Mass Index) 24.7 kg/m2 [place] Body Weight 160 lb Asthma Control Test 11 Weight 75.751 kg BSA (Body Surface Area) 1.91 m2 Results Description No Information Available Procedures Date Code Description Status 04/02/2021 44802 Office/Outpatient Established Mo d MDM 30-39 Min Completed 02/11/2021 48791 Office/Outpatient Established Mo d MDM 30-39 Min Completed 11/20/2020 93021 Injection Fee Completed 11/13/2020 62638 Office/Outpatient Established Mo d MDM 30-39 Min Completed 10/22/2020 61404 Injection Fee Completed Medical Devices Description No Information Available Encounters Type Date Location Provider Dx Diagnosis Office Visit 04/02/2021 11:30a [facility] Jessica Benitez M.D. J45.50 Severe persistent asthma, un complicated J30.9 Allergic rhinitis, unspecifi ed Office Visit 02/11/2021 1:00p [facility] Jessica Benitez M.D. J45.50 Severe persistent asthma, un complicated J30.9 Allergic rhinitis, unspecifi ed Office Visit 11/13/2020 3:30p [facility] Jessica Benitez M.D. J45.40 Moderate persistent asthma, uncomplicated J30.9 Allergic rhinitis, unspecifi ed Assessments Date Code Description Provider 04/02/2021 J45.50 Severe persistent asthma, uncomp licated Jessica Mcdonough M.D. 04/02/2021 J30.9 Allergic rhinitis, unspecified Jessica Benitez M.D. 02/11/2021 J45.50 Severe persistent asthma, uncomp licated Jessica Mcdonough M.D. 02/11/2021 J30.9 Allergic rhinitis, unspecified Jessica Benitez M.D. 11/20/2020 J45.40 Moderate persistent asthma, unco mplicated Jessica Mcdonough M.D. 11/13/2020 J45.40 Moderate persistent asthma, unco mplicated Jessica Mcdonough M.D. 11/13/2020 J30.9 Allergic rhinitis, unspecified Jessica Benitez M.D. 10/22/2020 J45.40 Moderate persistent asthma, unco mplicated Jessica Mcdonough M.D. Plan of Treatment 04/02/2021 - Jessica Mcdonough M.D.* J45.50 Severe persistent asthma, uncomplicated * J30.9 Allergic rhinitis, unspecified * * Follow up:* Follow-up 2-3 mo (after restarting Xolair) with ACT Functional Status Description No Information Available Mental Status Description No Information Available Referrals Description No Information Available
[2021-07-11] MEDS ORDERED: fentaNYL 100 MCG/2 ML INJECTION (J3010) As Ordered ONE (11:48)
--- NOTE | 2021-07-11 12:04 | ROOR ---
Patient Name: Des Hillman Procedure Date: 07/11/2021 11:46 AM Date of : 1965 Age: 55 Room: [facility] Gender: Male Note Status: Finalized Procedure: Upper Endoscopy + Biopsies Indications: Heartburn, Exclusion of Mercer's esophagus Providers: Glenn Balderrama MD Referring MD: Cesar Hubbard DO Requesting Provider: Medicines: Monitored Anesthesia Care Complications: No immediate complications. Procedure: Pre-Anesthesia Assessment: - The heart rate, respiratory rate, oxygen saturations, blood pressure, adequacy of pulmonary ventilation, and response to care were monitored throughout the procedure. The Endoscope was introduced through the mouth, and advanced to the second part of duodenum. The upper GI endoscopy was accomplished without difficulty. The patient tolerated the procedure well. Findings: The Z-line was regular and was found 40 cm from the incisors. Multiple biopsies were obtained with cold forceps for evaluation to rule out Mercer's Esophagus randomly at the gastroesophageal junction. No other significant abnormalities were identified in a careful examination of the stomach. Biopsies were taken with a cold forceps in the gastric antrum for Helicobacter pylori testing. The exam of the duodenum was otherwise normal. Impression: - Z-line regular, 40 cm from the incisors. - Multiple biopsies were obtained at the gastroesophageal junction. - Biopsies were taken with a cold forceps for Helicobacter pylori testing. - The examination was otherwise normal. Recommendation: - Patient has a contact number available for emergencies. The signs and symptoms of potential delayed complications were discussed with the patient. Return to normal activities tomorrow. Written discharge instructions were provided to the patient. - High fiber diet. - Discharge patient to home. - Continue present medications. - Await pathology results. - Telephone GI clinic for pathology results in 1 week. - Repeat upper endoscopy in 5 years for surveillance based on pathology results. - The findings and recommendations were discussed with the patient. Procedure Code(s): --- Professional --- 53851, Esophagogastroduodenoscopy, flexible, transoral; with biopsy, single or multiple Diagnosis Code(s): --- Professional --- R12, Heartburn CPT copyright 2019 [employer]. All rights reserved. The codes documented in this report are preliminary and upon powerhouse mechanic review may be revised to meet current compliance requirements. Glenn Balderrama MD Glenn Balderrama MD 07/11/2021 12:04:10 PM Electronically signed by Glenn Balderrama MD Number of Addenda: 0 Note Initiated On: 07/11/2021 11:46 AM Estimated Blood Loss: Estimated blood loss: none.
[2021-07-11 12:20] VITALS: BP 117/75
== END 2021-07-11 12:32 | disposition home or self-care (01) ==
LOC: M OPP 10:21
PROVIDERS: ATTEND Internal Medicine Gastroenterology
DX: K31.89 Other diseases of stomach and duodenum (principal); K22.89 Other specified disease of esophagus; R12 Heartburn; Z79.82 Long term (current) use of aspirin; Z79.899 Other long term (current) drug therapy; Z88.5 Allergy status to narcotic agent; Z88.8 Allergy status to other drugs, medicaments and biological substances; Z87.891 Personal history of nicotine dependence
CPT/HCPCS: 43239; 88305; J3010

== ENCOUNTER → 2021-11-21 | Outpatient (CLI) | payer OTHER ==
[~2021-11-21] MED LIST changes: -LIDOCAINE 2% 100MG/5ML SDV (FOR ANES.) As Ordered ONE; -NS 1,000 ML IV ONE; -propofoL 200 MG/20 ML VIAL As Ordered ONE
== END ==
LOC: M ADAMS 10:28
PROVIDERS: ATTEND Nurse Practitioner Family
DX: R06.00 Dyspnea, unspecified (principal)

== ENCOUNTER → 2022-01-21 | Outpatient (CLI) | payer OTHER | LOC: M PLAIMG 09:15 | DX: M54.12 Radiculopathy, cervical region (principal) ==

== ENCOUNTER → 2022-01-26 | Outpatient (CLI) | payer OTHER ==
[2022-02-03 17:07] LABS: CARDIOLIPIN IGA ANTIBODY <9 APL U/mL (0-11); CARDIOLIPIN IGG ANTIBODY <9 GPL U/mL (0-14); CARDIOLIPIN IGM ANTIBODY <9 MPL U/mL (0-12); COMPLEMENT C4A (FUTHAN) 332.8 ng/mL (0.0-650.0); INTERLEUKIN 6 < 2.5 pg/mL (0.0-13.0); UNITSIGA FOR GLIADIN IGA 4 units (0-19); UNITSIGG FOR GLIADIN IGG 1 units (0-19)
== END ==
LOC: M LAB 13:56
PROVIDERS: ATTEND Allergy & Immunology Allergy
DX: M79.7 Fibromyalgia (principal)

== ENCOUNTER 2022-03-01 12:21 | Emergency (ER) | payer OTHER ==
[~2022-03-01] VITALS: Ht 175.3 cm; Wt 76.6 kg
[2022-03-01] MEDS ORDERED: diphenhydrAMINE 50MG/ML VIAL (J1200) IV ONE (14:20)
[2022-03-01] MEDS ORDERED: ONDANSETRON 4MG 2ML VIAL IV ONE (14:20)
[2022-03-01] MEDS ORDERED: KETOROLAC 30 MG/ML 1ML VIAL IV ONE (14:20)
[2022-03-01] MEDS ORDERED: NS 1,000 ML IV ONE (14:20)
[2022-03-01 14:40] LABS: VENOUS HCO3 26.5 MEQ/L (23.0-27.0); VENOUS O2 SATURATION 58.9 % (60.0-80.0); VENOUS PARTIAL PRESSURE CO2 49.7 mmHg (38.0-50.0); VENOUS PARTIAL PRESSURE O2 30.5 mmHg (30.0-50.0); VENOUS PH 7.345 UNITS (7.330-7.430); VENOUS STANDARD HCO3 23.4 MEQ/L
[2022-03-01 14:42] LABS: BASO % 0.6 % (0.0-1.0); EOS # 0.1 10^3/uL (0.0-0.5); EOS % 1.6 % (0.0-3.0); HEMATOCRIT 46.2 % (42.0-52.0); HEMOGLOBIN 15.9 g/dl (13.5-17.5); LYMPH # 1.2 10^3/uL (1.5-5.0); LYMPH % 19.6 % (24.0-44.0); MEAN CORPUSCULAR HGB CONC 34.4 g/dl (32.0-36.5); MEAN CORPUSCULAR VOLUME 90.1 fl (80.0-96.0); MONO # 0.4 10^3/uL (0.0-0.8); NEUTROPHILS # 4.5 10^3/uL (1.5-8.5); NEUTROPHILS % 71.7 % (36.0-66.0); PLATELET COUNT, AUTOMATED 235 10^3/uL (150-450); RED BLOOD COUNT 5.13 10^6/uL (4.30-6.10); WHITE BLOOD COUNT 6.3 10^3/uL (4.0-10.0)
[2022-03-01 14:56] LABS: INR 0.94; PARTIAL THROMBOPLASTIN TIME 28.5 SECONDS (25.9-37.0)
[2022-03-01 15:01] LABS: D-DIMER QUANT < 270 ng/ml (<500)
[2022-03-01 15:07] LABS: ERYTHROCYTE SEDIMENTATION RATE 3 mm/hr (0-20)
[2022-03-01 15:19] LABS: ALT/SGPT 24 U/L (12-78); BILIRUBIN,DIRECT 0.1 MG/DL (0.0-0.2); BILIRUBIN,TOTAL 1.2 MG/DL (0.2-1.0); BLOOD UREA NITROGEN 16 MG/DL (7-18); CALCIUM LEVEL 8.8 MG/DL (8.5-10.1); CARBON DIOXIDE LEVEL 26 MEQ/L (21-32); CHLORIDE LEVEL 112 MEQ/L (98-107); CREATININE FOR GFR 0.93 MG/DL (0.70-1.30); FREE T4 0.71 NG/DL (0.76-1.46); GLOMERULAR FILTRATION RATE > 60.0 (>56); GLUCOSE, FASTING 94 MG/DL (70-100); LIPASE 150 U/L (73-393); MAGNESIUM LEVEL 2.2 MG/DL (1.8-2.4); POTASSIUM SERUM 5.1 MEQ/L (3.5-5.1); SODIUM LEVEL 142 MEQ/L (136-145); TOTAL PROTEIN 7.1 GM/DL (6.4-8.2)
[2022-03-01 16:54] VITALS: BP 134/81
== END 2022-03-01 17:33 | disposition home or self-care (01) ==
LOC: M ED 12:21
DX: F45.0 Somatization disorder (principal); R00.1 Bradycardia, unspecified; J45.909 Unspecified asthma, uncomplicated; K21.9 Gastro-esophageal reflux disease without esophagitis; F41.9 Anxiety disorder, unspecified; Z86.79 Personal history of other diseases of the circulatory system; Z79.1 Long term (current) use of non-steroidal anti-inflammatories (NSAID)

== ENCOUNTER → 2023-06-05 | Outpatient (CLI) | payer OTHER ==
[~2023-06-05] MED LIST changes: +FLUT50SP17; -FLUTISP
== END ==
LOC: M LAB 12:24
PROVIDERS: ATTEND Internal Medicine Gastroenterology
DX: R10.84 Generalized abdominal pain (principal)

== ENCOUNTER → 2024-07-19 | Outpatient (REF) | payer OTHER ==
[~2024-07-19] MED LIST changes: -FLUT50SP17; +FLUTISP
[2024-07-19 13:28] LABS: ALBUMIN 3.7 G/DL (3.2-5.2); ALKALINE PHOSPHATASE 123 U/L (40-129); ALT/SGPT 24 U/L (7.0-40); AST/SGOT 20 U/L (<34); BILIRUBIN,TOTAL 1.3 MG/DL (0.3-1.2); BLOOD UREA NITROGEN 19 MG/DL (9-23); CALCIUM LEVEL 9.3 MG/DL (8.5-10.1); CARBON DIOXIDE LEVEL 30 MMOL/L (20-31); CHLORIDE LEVEL 109 MMOL/L (98-107); CHOLESTEROL LEVEL 216 MG/DL (<200); CHOLESTEROL RISK RATIO 5.28 (<5); CREATININE FOR GFR 0.82 MG/DL (0.70-1.30); GLOMERULAR FILTRATION RATE > 60.0 (>56); GLUCOSE, FASTING 89 MG/DL (60-100); HDL CHOLESTEROL 40.9 MG/DL (>40); LDL CHOLESTEROL 153.1 MG/DL (<100); NON-HDL-C 175.1 MG/DL; POTASSIUM SERUM 3.9 MMOL/L (3.5-5.1); SODIUM LEVEL 143 MMOL/L (136-145); TOTAL PROTEIN 6.7 G/DL (5.7-8.2); TRIGLYCERIDES LEVEL 110 MG/DL (<150)
[2024-07-19 13:29] LABS: BASO % 0.5 % (0.0-1.0); EOS # 0.2 10^3/uL (0.0-0.5); EOS % 2.8 % (0.0-3.0); HEMATOCRIT 43.3 % (42.0-52.0); HEMOGLOBIN 14.5 g/dl (13.5-17.5); LYMPH # 2.2 10^3/uL (1.5-5.0); LYMPH % 38.2 % (24.0-44.0); MEAN CORPUSCULAR HEMOGLOBIN 30.7 pg (27.0-33.0); MEAN CORPUSCULAR HGB CONC 33.5 g/dl (32.0-36.5); MEAN CORPUSCULAR VOLUME 91.5 fl (80.0-96.0); MONO # 0.5 10^3/uL (0.0-0.8); MONO % 9.1 % (2.0-8.0); NEUTROPHILS # 2.8 10^3/uL (1.5-8.5); PLATELET COUNT, AUTOMATED 233 10^3/uL (150-450); RED BLOOD COUNT 4.73 10^6/uL (4.30-6.10); WHITE BLOOD COUNT 5.7 10^3/uL (4.0-10.0)
[2024-07-19 13:30] LABS: THYROID STIMULATING HORMONE 5.077 uIU/ML (0.55-4.78)
[2024-07-19 13:52] LABS: HEMOGLOBIN A1c 5.3 % (4.0-6.0)
== END ==
LOC: M LABDRWAD 12:53
PROVIDERS: ATTEND Family Medicine
DX: I48.91 Unspecified atrial fibrillation (principal); R00.2 Palpitations; Z13.1 Encounter for screening for diabetes mellitus

== ENCOUNTER → 2025-07-24 | Outpatient (CLI) | payer OTHER ==
[2025-07-24 13:36] LABS: ALT/SGPT 23 U/L (7.0-40); AST/SGOT 19 U/L (<34); CALCIUM LEVEL 8.6 MG/DL (8.3-10.6); CARBON DIOXIDE LEVEL 29 MMOL/L (20-31); CHLORIDE LEVEL 106 MMOL/L (98-107); CHOLESTEROL LEVEL 194 MG/DL (<200); CHOLESTEROL RISK RATIO 5.06 (<5); CREATININE FOR GFR 0.95 MG/DL (0.70-1.30); GLOMERULAR FILTRATION RATE > 90.0 (>49); LDL CHOLESTEROL 132.7 MG/DL (<100); NON-HDL-C 155.7 MG/DL; POTASSIUM SERUM 4.6 MMOL/L (3.5-5.1); PSA SCREENING 1.63 NG/ML (< 4.00); SODIUM LEVEL 143 MMOL/L (136-145); TRIGLYCERIDES LEVEL 115 MG/DL (<150)
[2025-07-24 13:39] LABS: BASO # 0.1 10^3/uL (0.0-0.2); BASO % 0.4 % (0.0-1.0); EOS # 0.3 10^3/uL (0.0-0.5); EOS % 2.1 % (0.0-3.0); LYMPH # 2.1 10^3/uL (1.5-5.0); LYMPH % 16.7 % (24.0-44.0); MONO # 0.8 10^3/uL (0.0-0.8); MONO % 6.3 % (2.0-8.0); NEUTROPHILS # 9.3 10^3/uL (1.5-8.5); NEUTROPHILS % 74.3 % (36.0-66.0); PLATELET COUNT, AUTOMATED 276 10^3/uL (150-450)
[2025-07-24 13:50] LABS: ESTIMATED AVERAGE GLUCOSE 108.0 MG/DL (60-110)
[2025-07-24 14:02] LABS: CREATININE, URINE 109.0 MG/DL; MALB URINE SIEMENS 3.0 MG/L
== END ==
LOC: M LABDRWAD 08:52
PROVIDERS: ATTEND Family Medicine
DX: I48.91 Unspecified atrial fibrillation (principal); E03.9 Hypothyroidism, unspecified; Z13.1 Encounter for screening for diabetes mellitus; Z12.5 Encounter for screening for malignant neoplasm of prostate
CPT/HCPCS: 36415; 80053; 80061; 82043; 83036; 84443; 85025; G0103